=== PATIENT | male | born 1970 | race Asian ===

== ENCOUNTER 2023-05-19 09:09 | Inpatient (IN) ==
--- NOTE | 2023-05-19 10:00 | Emergency Department Note ---
History of Present Illness General Chief Complaint: Fever Stated Complaint: FEVER, ABD PAIN Time Seen by Provider: 05/19/23 09:34 History of Present Illness Provider Complaint: abdominal pain Onset (ago): 1 day(s) Pain Consistency: intermittent Location: RLQ Radiation: none Severity: moderate Maximum Pain Intensity: 5 Current Pain Intensity: 3 Quality: + stabbing and + sharp Relieved By: + nothing Exacerbated By: + nothing Context: no foreign travel or no recent antibiotic use Associated Symptoms: + nausea, + vomiting, + diarrhea, + fever (Tmax 105) and + chills; no constipation, no dysuria, no hematemesis, no hematochezia, no melena, no hematuria, no syncope, no headache, no back pain, no chest pain and no breathing difficulty Home Medications Medication Instructions Recorded Confirmed Type losartan 50 mg-hydrochlorothiazide 1 tab PO DAILY 05/19/23 05/19/23 History 12.5 mg tablet Allergies Allergy/AdvReac Type Severity Reaction Status Date / Time No Known Allergies AdvReac Unknown Unverified 02/15/05 17:10 Past Med/Surg History Medical History (Updated 05/19/23 @ 19:22 by Wero Lewis MD) Essential hypertension Surgical History (Updated 05/19/23 @ 11:39 by Elena Lozano PA-C) History of colonoscopy History of vasectomy Family History (Updated 05/19/23 @ 11:40 by Elena Lozano PA-C) Father Hypertension Cancer Mother Hypertension Diabetes Social History Smoking Status: Never smoker Second Hand Exposure: No; Do You Dip or Chew Tobacco: No; Hx Alcohol Use: No Hx Substance Use: No Preferred Language: Divehi 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 Beliefs That Will Affect Care: None Current Living Situation: Spouse Feels Safe at Home: Yes Assistive Devices: Glasses Physical Exam 2 Vital Signs: Vital Signs - 24 hr 05/19/23 09:12 05/19/23 09:48 05/19/23 09:48 Temperature 37.1 C Temperature Source Oral Pulse Rate 95 H 81 Pulse Rhythm Regular Pulse Strength Normal Respiratory Rate 20 23 Respiratory Effort / Characteristics Non-Labored Sponta neous Respiratory Depth Normal Respiratory Patter n Regular Blood Pressure 125/75 Blood Pressure Ju n 91 Blood Pressure Pos ition Sitting Pulse Oximetry 97 95 Oxygen Delivery Me thod Room Air Room Air Sepsis Recent Feve r Within 48 Hours No Sepsis New/Unexpla ined Change in Men katarina Status No Sepsis Action Take n by Nursing No Action Required 05/19/23 09:51 05/19/23 10:00 05/19/23 11:00 Temperature Temperature Source Pulse Rate 80 74 75 Pulse Rhythm Pulse Strength Respiratory Rate 22 22 Respiratory Effort / Characteristics Respiratory Depth Respiratory Patter n Blood Pressure Blood Pressure Ju n Blood Pressure Pos ition Pulse Oximetry 95 95 Oxygen Delivery Me thod Sepsis Recent Feve r Within 48 Hours Sepsis New/Unexpla ined Change in Men katarina Status Sepsis Action Take n by Nursing 05/19/23 12:00 Temperature Temperature Source Pulse Rate 77 Pulse Rhythm Pulse Strength Respiratory Rate 21 Respiratory Effort / Characteristics Respiratory Depth Respiratory Patter n Blood Pressure 118/80 Blood Pressure Ju n 92 Blood Pressure Pos ition Pulse Oximetry 95 Oxygen Delivery Me thod Sepsis Recent Feve r Within 48 Hours Sepsis New/Unexpla ined Change in Men katarina Status Sepsis Action Take n by Nursing Physical Exam: Physical Exam GENERAL: She is oriented to person, place, and time. She appears well-developed and well-nourished. She does not appear distressed. HENT: Exam performed. -Head: Normocephalic and atraumatic. -Right Ear: External ear normal. No mastoid erythema -Left Ear: External ear normal. No mastoid erythema -Mouth/Throat: The oropharynx is clear and moist. No trismus in the jaw. No dental abscesses or uvula swelling. No oropharyngeal exudate or tonsillar abscesses. EYES: Conjunctivae and EOM are normal.Right eye exhibits no discharge. Left eye exhibits no discharge. No scleral icterus. NECK: Normal range of motion. Neck supple. No JVD present. No tracheal deviation and normal range of motion present. CV: Normal rate, regular rhythm, normal heart sounds and intact distal pulses. There is no peripheral edema. Palpable radial pulses bue. PULM/CHEST: Effort normal and breath sounds normal. No respiratory distress. No stridor. She has no wheezes. She has no rales. -Chest Wall: She exhibits no tenderness. ABD: The abdomen is soft. Bowel sounds are normal. She has no distension. No mass is present. There is tenderness to palpation of the right lower quadrant. There is no rebound, no guarding, no Chou's sign. Rovsig negative MUSC/SKEL: Normal range of motion. There is no peripheral edema, tenderness or deformity. NEURO: Motor and sensation grossly intact. SKIN: Skin is warm and dry. She is not diaphoretic. PSYCH: She has a normal mood and affect. Behavior is normal. Judgment and thought content normal. Course Course 933: The patient was evaluated in room C11. A complete history and physical exam was performed Administered Medications Sodium Chloride (Nss) 1,000 mls @ 100 mls/hr IV .Q10H JALIL Stop: 06/18/23 14:13 Last Admin: 05/19/23 14:28 Dose: 100 mls/hr Documented By: REINIER Ceftriaxone Sodium 2,000 mg/ (Dextrose) 50 mls @ 100 mls/hr IV Q24H JALIL; Protocol Stop: 05/29/23 14:29 Last Infusion: 05/19/23 15:58 Dose: Infused Documented By: Admin: 05/19/23 15:23 Dose: 100 mls/hr Documented By: REINIER Discontinued Medications Sodium Chloride (Nss) 1,000 mls @ 999 mls/hr IV .Q1H1M ONE Stop: 05/19/23 10:48 Last Infusion: 05/19/23 14:16 Dose: Infused Documented By: Admin: 05/19/23 10:02 Dose: 999 mls/hr Documented By: SUE Ciprofloxacin (Cipro / D5w) 400 mg in 200 mls @ 100 mls/hr IV NOW STA; Protocol Stop: 05/19/23 13:28 Last Infusion: 05/19/23 14:16 Dose: Infused Documented By: Admin: 05/19/23 11:34 Dose: 100 mls/hr Documented By: SUE Ioversol (Optiray 320 100ml) 94 ml IV ONCE ONE Stop: 05/19/23 10:45 Last Admin: 05/19/23 10:44 Dose: 94 ml Documented By: ZACK Ketorolac Tromethamine (Ketorolac Tromethamine 15 Mg/Ml Vial) 15 mg IV NOW STA Stop: 05/19/23 09:49 Last Admin: 05/19/23 10:02 Dose: 15 mg Documented By: SUE Morphine Sulfate (Morphine Sulfate 4 Mg/Ml 1 Ml Carp\Vial) 4 mg IV NOW STA Stop: 05/19/23 12:24 Last Admin: 05/19/23 12:31 Dose: 4 mg Documented By: SUE Ondansetron HCl (Ondansetron Inj 2 Mg/Ml 2 Ml Vial) 4 mg IV NOW STA Stop: 05/19/23 09:49 Last Admin: 05/19/23 10:02 Dose: 4 mg Documented By: SUE Medical Decision Making Laboratory Data Attestation: I reviewed the patient's lab results. 05/19/23 09:41 05/19/23 09:41 Lab Results 05/19/23 05/19/23 05/19/23 Range/Units 09:41 10:00 10:12 WBC 13.35 H (4.8-10.8) K/ul RBC 4.44 L (4.70-6.10) M/uL Hgb 13.1 L (14.0-18.0) g/dl Hct 38.2 L (42.0-52.0) % MCV 86.0 (80.0-100.0) fL MCH 29.5 (25.0-34.0) pg MCHC 34.3 (32.0-36.0) g/dL RDW Std Deviation 40.1 (36.4-46.3) fL RDW Coeff of Liam 12.8 (11.5-14.5) % Plt Count 162 (130-400) K/uL MPV 10.9 (9.4-12.4) fL Immature Gran % (Auto) 0.4 % Neut % (Auto) 95.7 % Lymph % (Auto) 1.0 % Ellis % (Auto) 2.8 % Eos % (Auto) 0.0 % Baso % (Auto) 0.1 % Neut # (Auto) 12.77 H (1.40-6.50) K/uL Lymph # (Auto) 0.13 L (1.20-3.40) K/uL Ellis # (Auto) 0.37 (0.11-0.59) K/uL Eos # (Auto) 0.00 (0.00-0.50) K/uL Baso # (Auto) 0.02 (0.00-0.20) K/uL Immature Gran # (Auto) 0.06 (0.01-0.20) K/uL PT Cancelled INR Cancelled APTT Cancelled PTT Ratio Cancelled Sodium 136 (136-145) mmol/L Potassium 3.4 L (3.5-5.1) mmol/L Chloride 104 (98-107) mmol/L Carbon Dioxide 24 (21-32) mmol/L Anion Gap 8 (3-11) BUN 24 H (6-23) mg/dl Creatinine 1.43 H (0.6-1.4) mg/dl Est Cr Clr Drug Dosing 58.5 ml/min Est GFR ( Amer) 64.8 ml/min Est GFR (Non-Af Amer) 55.9 ml/min BUN/Creatinine Ratio 16.8 (10-20) Glucose 101 H (70-99(Fasting)) mg/dl Calcium 8.8 (8.6-10.3) mg/dl Total Bilirubin 1.4 H (0.2-1.0) mg/dl Direct Bilirubin 0.3 H (0-0.2) mg/dl AST 20 (13-39) U/L ALT 18 (7-52) U/L Alkaline Phosphatase 66 (34-104) U/L Total Protein 6.7 (6.0-8.3) gm/dl Albumin 3.8 (3.4-5.0) gm/dl Lipase 30 (11-82) U/L Urine Color Dark Yellow Urine Appearance Cloudy A (Clear) Urine pH 5.5 (4.5-7.5) Ur Specific [place] 1.027 (1.000-1.030) Urine Protein 2+ H (Negative) Urine Glucose (UA) Negative (Negative) Urine Ketones Trace H (Negative) Urine Blood 2+ H (Negative) Urine Nitrite Positive A (Negative) Urine Bilirubin Negative (Negative) Urine Urobilinogen Negative (Negative) Ur Leukocyte Esterase 2+ H (Negative) Urine WBC (Auto) >30 H (0-5) /hpf Urine RBC (Auto) 5-10 H (0-4) /hpf U Hyaline Cast (Auto) 10-30 H (0-5) /lpf U Epithel Cells (Auto) 0-5 (0-5) /lpf Urine Bacteria (Auto) 2+ H (Negative) Stl C. cayetanensis PCR Not Detected (NotDetected) Stool Rotavirus A PCR Not Detected (NotDetected) Stl Adenov F 40/41 PCR Not Detected (NotDetected) Stool Astrovirus (PCR) Not Detected (NotDetected) Stool Campylobacter PCR Not Detected (NotDetected) Stool Cryptosporidium PCR Not Detected (NotDetected) Stl E.coli Shiga Tox PCR Not Detected (NotDetected) Stl Enterotoxigenic E PCR Not Detected (NotDetected) Stool EPEC (PCR) Not Detected (NotDetected) Stool EAEC (PCR) Not Detected (NotDetected) Stl E. histolytica PCR Not Detected (NotDetected) Stool Giardia Lamblia PCR Not Detected (NotDetected) Stool Salmonella PCR Not Detected (NotDetected) Stool Sapovirus (PCR) Not Detected (NotDetected) Stl P. shigelloides PCR Not Detected (NotDetected) Stl Shigella/EIEC PCR Not Detected (NotDetected) St Y.enterocolitica PCR Not Detected (NotDetected) Stool Vibrio (PCR) Not Detected (NotDetected) Stl Vibrio cholerae PCR Not Detected (NotDetected) Stl Norovirus GI/GII PCR DETECTED A* (NotDetected) Adenovirus (PCR) Not Detected (NotDetected) B. pertussis DNA (PCR) Not Detected (NotDetected) B.parapertussis DNA PCR Not Detected (NotDetected) C. pneumoniae DNA (PCR) Not Detected (NotDetected) Coronavirus OC43 (PCR) Not Detected (NotDetected) Coronavirus HKU1 (PCR) Not Detected (NotDetected) Coronavirus 229E (PCR) Not Detected (NotDetected) SARS-CoV-2 (PCR) Not Detected (NotDetected) Coronavirus NL63 (PCR) Not Detected (NotDetected) Human Metapneumovir PCR Not Detected (NotDetected) Influenza Type A (PCR) Not Detected (NotDetected) Influenza Type B (PCR) Not Detected (NotDetected) M. pneumoniae (PCR) Not Detected (NotDetected) Parainfluenza 1 (PCR) Not Detected (NotDetected) Parainfluenza 2 (PCR) Not Detected (NotDetected) Parainfluenza 3 (PCR) Not Detected (NotDetected) Parainfluenza 4 (PCR) Not Detected (NotDetected) RSV (PCR) Not Detected (NotDetected) Entero/Rhino (PCR) Not Detected (NotDetected) 05/19/23 Range/Units 10:18 WBC (4.8-10.8) K/ul RBC (4.70-6.10) M/uL Hgb (14.0-18.0) g/dl Hct (42.0-52.0) % MCV (80.0-100.0) fL MCH (25.0-34.0) pg MCHC (32.0-36.0) g/dL RDW Std Deviation (36.4-46.3) fL RDW Coeff of Liam (11.5-14.5) % Plt Count (130-400) K/uL MPV (9.4-12.4) fL Immature Gran % (Auto) % Neut % (Auto) % Lymph % (Auto) % Ellis % (Auto) % Eos % (Auto) % Baso % (Auto) % Neut # (Auto) (1.40-6.50) K/uL Lymph # (Auto) (1.20-3.40) K/uL Ellis # (Auto) (0.11-0.59) K/uL Eos # (Auto) (0.00-0.50) K/uL Baso # (Auto) (0.00-0.20) K/uL Immature Gran # (Auto) (0.01-0.20) K/uL PT 12.8 H INR 1.2 H APTT 37 H PTT Ratio 1.3 Sodium (136-145) mmol/L Potassium (3.5-5.1) mmol/L Chloride (98-107) mmol/L Carbon Dioxide (21-32) mmol/L Anion Gap (3-11) BUN (6-23) mg/dl Creatinine (0.6-1.4) mg/dl Est Cr Clr Drug Dosing ml/min Est GFR ( Amer) ml/min Est GFR (Non-Af Amer) ml/min BUN/Creatinine Ratio (10-20) Glucose (70-99(Fasting)) mg/dl Calcium (8.6-10.3) mg/dl Total Bilirubin (0.2-1.0) mg/dl Direct Bilirubin (0-0.2) mg/dl AST (13-39) U/L ALT (7-52) U/L Alkaline Phosphatase (34-104) U/L Total Protein (6.0-8.3) gm/dl Albumin (3.4-5.0) gm/dl Lipase (11-82) U/L Urine Color Urine Appearance (Clear) Urine pH (4.5-7.5) Ur Specific [place] (1.000-1.030) Urine Protein (Negative) Urine Glucose (UA) (Negative) Urine Ketones (Negative) Urine Blood (Negative) Urine Nitrite (Negative) Urine Bilirubin (Negative) Urine Urobilinogen (Negative) Ur Leukocyte Esterase (Negative) Urine WBC (Auto) (0-5) /hpf Urine RBC (Auto) (0-4) /hpf U Hyaline Cast (Auto) (0-5) /lpf U Epithel Cells (Auto) (0-5) /lpf Urine Bacteria (Auto) (Negative) Stl C. cayetanensis PCR (NotDetected) Stool Rotavirus A PCR (NotDetected) Stl Adenov F 40/41 PCR (NotDetected) Stool Astrovirus (PCR) (NotDetected) Stool Campylobacter PCR (NotDetected) Stool Cryptosporidium PCR (NotDetected) Stl E.coli Shiga Tox PCR (NotDetected) Stl Enterotoxigenic E PCR (NotDetected) Stool EPEC (PCR) (NotDetected) Stool EAEC (PCR) (NotDetected) Stl E. histolytica PCR (NotDetected) Stool Giardia Lamblia PCR (NotDetected) Stool Salmonella PCR (NotDetected) Stool Sapovirus (PCR) (NotDetected) Stl P. shigelloides PCR (NotDetected) Stl Shigella/EIEC PCR (NotDetected) St Y.enterocolitica PCR (NotDetected) Stool Vibrio (PCR) (NotDetected) Stl Vibrio cholerae PCR (NotDetected) Stl Norovirus GI/GII PCR (NotDetected) Adenovirus (PCR) (NotDetected) B. pertussis DNA (PCR) (NotDetected) B.parapertussis DNA PCR (NotDetected) C. pneumoniae DNA (PCR) (NotDetected) Coronavirus OC43 (PCR) (NotDetected) Coronavirus HKU1 (PCR) (NotDetected) Coronavirus 229E (PCR) (NotDetected) SARS-CoV-2 (PCR) (NotDetected) Coronavirus NL63 (PCR) (NotDetected) Human Metapneumovir PCR (NotDetected) Influenza Type A (PCR) (NotDetected) Influenza Type B (PCR) (NotDetected) M. pneumoniae (PCR) (NotDetected) Parainfluenza 1 (PCR) (NotDetected) Parainfluenza 2 (PCR) (NotDetected) Parainfluenza 3 (PCR) (NotDetected) Parainfluenza 4 (PCR) (NotDetected) RSV (PCR) (NotDetected) Entero/Rhino (PCR) (NotDetected) Imaging Data Radiologist's Impression: Abdomen/Pelvis CT 05/19/23 09:[address] WITH IV CONTRAST CT DOSE: 741.16 mGy.cm HISTORY: Acute right lower quadrant abdominal pain with fever rlq pain fever ro appy TECHNIQUE: Multiaxial CT images of the abdomen and pelvis were performed following the IV administration of 94 cc of Optiray, A dose lowering technique was utilized adhering to the principles of ALARA. COMPARISON STUDY: None. FINDINGS: Trace pleural effusions. Mild subsegmental dependent bibasilar atelectasis. No free air. Unremarkable spleen, pancreas and adrenal glands. Innumerable mostly subcentimeter cystic foci of the liver suggestive of cysts and/or biliary hamartomas. Additional subcentimeter foci of the liver measuring up to 1.6 cm or incomplete characterized however favored to be benign. There is patency of the hepatic and portal veins. Innumerable cysts of the kidneys with intermediate attenuating hypodensities of the right kidney. There is a 3.6 cm thick-walled cystic exophytic lesion of the mid inferior pole right kidney. 4 mm nonobstructing calculus of the inferior pole right kidney. There are several subcentimeter calcifications of the left kidney. Urothelial thickening of the right renal collecting system and ureter with mild right-sided hydronephrosis secondary to an obstructing 5 x 4 x 7 mm calculus of the right ureteropelvic junction. Decompressed bladder with wall thickening. Mild prostatomegaly. Small fat filled inguinal hernias, left greater than right. Atherosclerosis of the aorta without aneurysm. No lymphadenopathy. No bowel obstruction or bowel wall thickening. Colonic diverticulosis. Normal appendix. Severe L5-S1 intervertebral disc space narrowing. No acute fracture. IMPRESSION: 1. Mild right-sided hydronephrosis secondary to an obstructing 7 mm calculus of the ureteropelvic junction. 2. Nonobstructing bilateral nephrolithiasis. 3. Innumerable hepatic and renal cysts. 4. There is a thick walled hypodense partially exophytic 3.6 cm lesion of the right kidney which is indeterminate and should be evaluated with a follow-up one month renal ultrasound. 5. Right-sided urothelial thickening and perinephric inflammatory stranding is likely reactive. Correlate with urinalysis to exclude superimposed infection. 6. Normal appendix. ACT 112: Negative or not required by law. The above report was generated using voice recognition software. It may contain grammatical, syntax or spelling errors. Electronically signed by: Skinny Hay M.D. 05/19/2023 11:22 AM [facility] Narrative Cardiac monitoring: An order was placed for continuous cardiac monitoring. The monitor shows a rate of 80 with sinus rhythm interpreted by me Vital signs stable. Labs show leukocytosis of 13.35. Creatinine 1.43. Total bilirubin 1.4. Urinalysis does appear infected. Patient's CT of the abdomen pelvis showed a 7 mm stone at the right UV J hydronephrosis. Normal appendix. Spoke with urology Angie NORIEGA for Dr. Hutchison and informed her about the patient's mildly elevated creatinine fevers urinalysis and CT findings. She states she will be down to evaluate the patient. Patient be admitted to the [facility] team Impression & Plan UTI (urinary tract infection), Hydronephrosis concurrent with and due to calculi of kidney and ureter Discharge Plan Visit Data Chief Complaint: Fever Stated Complaint: FEVER, ABD PAIN ED Provider: Wero Lewis Discharge Problem: UTI (urinary tract infection), Hydronephrosis concurrent with and due to calculi of kidney and ureter Patient Disposition: Admitted As Inpatient Discharge Instructions Interventions: ED Discharge Assessment Last Done: 05/19/23 12:49
[2023-05-19] MEDS: SODIUM CHLORIDE 0.9% 1,000 ML IV ONE (10:02)
[2023-05-19] MEDS: KETOROLAC TROMETHAMINE 15 MG/ML VIAL IV STA (10:02)
[2023-05-19] MEDS: ONDANSETRON INJ 2 MG/ML 2 ML VIAL IV STA (10:02)
[2023-05-19 10:08] LABS: Hematocrit (blood only) 38.2 % (42.0-52.0); Hemoglobin 13.1 g/dl (14.0-18.0); Mean Corpuscular Hemoglobin 29.5 pg (25.0-34.0); Mean Corpuscular Hgb Conc 34.3 g/dL (32.0-36.0); Mean Platelet Volume 10.9 fL (9.4-12.4); Platelet Count 162 K/uL (130-400); RDW Coefficient of Variation 12.8 % (11.5-14.5); RDW Standard Deviation 40.1 fL (36.4-46.3); Red Blood Count 4.44 M/uL (4.70-6.10); White Blood Count 13.35 K/ul (4.8-10.8)
[2023-05-19 10:21] LABS: Albumin Level 3.8 gm/dl (3.4-5.0); BUN Creatinine Ratio 16.8 (10-20); Bilirubin Direct 0.3 mg/dl (0-0.2); Bilirubin,Total 1.4 mg/dl (0.2-1.0); Calcium 8.8 mg/dl (8.6-10.3); Creatinine Clr Calc Pharmacy 58.5 ml/min; Est GFR (African American) 64.8 ml/min; Est GFR (Non-African American) 55.9 ml/min; Potassium 3.4 mmol/L (3.5-5.1); Total Protein 6.7 gm/dl (6.0-8.3)
[2023-05-19 10:31] LABS: Basophils # (auto) 0.02 K/uL (0.00-0.20); Basophils % (auto) 0.1 %; Immature Granulocytes # (auto) 0.06 K/uL (0.01-0.20); Immature Granulocytes % (auto) 0.4 %; Lymphocytes # (auto) 0.13 K/uL (1.20-3.40); Monocytes # (auto) 0.37 K/uL (0.11-0.59); Monocytes % (auto) 2.8 %; Neutrophils # (auto) 12.77 K/uL (1.40-6.50); Neutrophils % (auto) 95.7 %
[2023-05-19 10:36] LABS: Appearance Urine Cloudy (Clear); Bacteria Urine Automated 2+ (Negative); Bilirubin Urine Negative (Negative); Blood Urine 2+ (Negative); Color Urine Dark Yellow; Epithelial Cell Urine Auto 0-5 /lpf (0-5); Glucose Urine UA Negative (Negative); Ketones Urine Trace (Negative); Leukocyte Esterase Urine 2+ (Negative); Nitrite Urine Positive (Negative); Protein Urine 2+ (Negative); Specific Gravity Urine 1.027 (1.000-1.030); Urobilinogen Urine Negative (Negative); WBC Urine Automated >30 /hpf (0-5); pH Urine 5.5 (4.5-7.5)
[2023-05-19] MEDS: OPTIRAY 320 100ml IV ONE (10:44)
[2023-05-19 11:02] LABS: INR 1.2 (0.9-1.1); Partial Thromboplastin Ratio 1.3; Partial Thromboplastin Time 37 Seconds (21-31); Prothrombin Time 12.8 Seconds (9.0-12.0)
[2023-05-19 11:20] LABS: Adenovirus PCR Not Detected (NotDetected); Bordetella parapertussis PCR Not Detected (NotDetected); Bordetella pertussis PCR Not Detected (NotDetected); Chlamydia pneumoniae PCR Not Detected (NotDetected); Coronavirus 229E PCR Not Detected (NotDetected); Coronavirus CoV-2 (COVID19)PCR Not Detected (NotDetected); Coronavirus HKU1 PCR Not Detected (NotDetected); Coronavirus NL63 PCR Not Detected (NotDetected); Coronavirus OC43PCR Not Detected (NotDetected); Human Metapneumovirus PCR Not Detected (NotDetected); Influenza A PCR Not Detected (NotDetected); Influenza B PCR Not Detected (NotDetected); Mycoplasma pneumoniae PCR Not Detected (NotDetected); Parainfluenza Virus 1 PCR Not Detected (NotDetected); Parainfluenza Virus 2 PCR Not Detected (NotDetected); Parainfluenza Virus 3 PCR Not Detected (NotDetected); Parainfluenza Virus 4 PCR Not Detected (NotDetected); Respiratory Syncytial VirusPCR Not Detected (NotDetected); Rhinovirus/Enterovirus PCR Not Detected (NotDetected)
--- NOTE | 2023-05-19 11:24 | CT Scan Report ---
ABDOMEN AND PELVIS CT WITH IV CONTRAST CT DOSE: 741.16 mGy.cm HISTORY: Acute right lower quadrant abdominal pain with fever rlq pain fever ro appy TECHNIQUE: Multiaxial CT images of the abdomen and pelvis were performed following the IV administrat ion of 94 cc of Optiray, A dose lowering technique was utilized adhering to the principles of ALARA. COMPARISON STUDY: None. FINDINGS: Trace pleural effusions. Mild subsegmental dependent bibasilar atelectasis. No free air. Un remarkable spleen, pancreas and adrenal glands. Innumerable mostly subcentimeter cystic foci of the l iver suggestive of cysts and/or biliary hamartomas. Additional subcentimeter foci of the liver measur ing up to 1.6 cm or incomplete characterized however favored to be benign. There is patency of the he patic and portal veins. Innumerable cysts of the kidneys with intermediate attenuating hypodensities of the right kidney. The re is a 3.6 cm thick-walled cystic exophytic lesion of the mid inferior pole right kidney. 4 mm nonob structing calculus of the inferior pole right kidney. There are several subcentimeter calcifications of the left kidney. Urothelial thickening of the right renal collecting system and ureter with mild r ight-sided hydronephrosis secondary to an obstructing 5 x 4 x 7 mm calculus of the right ureteropelvi c junction. Decompressed bladder with wall thickening. Mild prostatomegaly. Small fat filled inguinal hernias, left greater than right. Atherosclerosis of the aorta without aneurysm. No lymphadenopathy. No bowel obstruction or bowel wall thickening. Colonic diverticulosis. Normal appendix. Severe L5-S1 intervertebral disc space narrowing. No acute fracture. IMPRESSION: 1. Mild right-sided hydronephrosis secondary to an obstructing 7 mm calculus of the ureteropelvic jami ction. 2. Nonobstructing bilateral nephrolithiasis. 3. Innumerable hepatic and renal cysts. 4. There is a thick walled hypodense partially exophytic 3.6 cm lesion of the right kidney which is i ndeterminate and should be evaluated with a follow-up one month renal ultrasound. 5. Right-sided urothelial thickening and perinephric inflammatory stranding is likely reactive. Corre late with urinalysis to exclude superimposed infection. 6. Normal appendix. ACT 112: Negative or not required by law. The above report was generated using voice recognition software. It may contain grammatical, syntax o r spelling errors. Electronically signed by: Skinny Hay M.D. 05/19/2023 11:22 AM
[2023-05-19 11:32] LABS: Adenovirus F 40/41 PCR Not Detected (NotDetected); Astrovirus PCR Not Detected (NotDetected); Campylobacter PCR Not Detected (NotDetected); Cryptosporidium PCR Not Detected (NotDetected); Cyclospora cayetanensis PCR Not Detected (NotDetected); Entamoeba histolytica PCR Not Detected (NotDetected); Enteroaggregative E.coli(EAEC) Not Detected (NotDetected); Enteropathogenic E.coli (EPEC) Not Detected (NotDetected); Enterotoxigenic E.coli (ETEC) Not Detected (NotDetected); Giardia lamblia PCR Not Detected (NotDetected); Plesiomonas shigelloides PCR Not Detected (NotDetected); Rotavirus A PCR Not Detected (NotDetected); Salmonella PCR Not Detected (NotDetected); Sapovirus PCR Not Detected (NotDetected); Shiga-like Toxin E.coli (STEC) Not Detected (NotDetected); Shigella/Enteroinvasive E.coli Not Detected (NotDetected); Vibrio cholerae PCR Not Detected (NotDetected); Vibrio species PCR Not Detected (NotDetected); Yersinia enterocolitica PCR Not Detected (NotDetected)
[2023-05-19] MEDS: CIPROFLOXACIN / D5W 400 MG/200 ML BAG IV STA (11:34)
[2023-05-19 11:57] LABS: Norovirus GI/GII PCR DETECTED (NotDetected)
--- NOTE | 2023-05-19 12:25 | History & Physical Report ---
Date of Service May 19, 2023 Assessment & Plan (1) UTI (urinary tract infection): Plan: This is a 52 y/o male with history of hypertension who presents to the ED today with fever and right flank pain for three days. Work-up in the ED shows mild right hydronephrosis with 7 mm obstructing stone at the UPJ. Pt is currently afebrile but reports taking both Tylenol and Advil this morning prior to coming to the ED as his temp was elevated again. Work-up also positive for norovirus but pt reports diarrhea has resolved and stools are back to baseline. - Admit to med telemetry - Consult urology for possible intervention - will keep pt NPO for now - Pain control, anti-emetics - Continue antibiotics pending culture results - will change to Rocephin - IVF hydration with NSS at 100 ml/hr - Follow labs - CBC, BMP in the AM - Contact precautions since positive for norovirus (2) Obstruction of right ureteropelvic junction due to stone: Plan: See plan for #1 (3) Essential hypertension: Plan: Chronic, stable Hold losartan-HCTZ for now and monitor BP Plan Pt seen and reviewed with collaborating physician, Dr. Payton. Plan of care discussed and as outlined above. Code Status: Full code DVT Prophylaxis: SCDs in anticipation of potential urologic procedure. Kike Lozano PA-C History of Present Illness Chief Complaint: fever Primary Care Provider: Stephan Stevens DO This is a 52 y/o male with history of hypertension who presents to the ED today with fever and right flank pain for three days. Pt reports that he had some diarrhea on and Friday of last week - took an unknown medication for this which helped and bowel movements are now normal. Friday, he started with fevers with a Tmax of 105F per his report. He has been alternating Tylenol and Advil to help with the fever but reports it hasn't gotten below 100F and his temperature goes back up as soon as these medications wear off. He has pain that initially started in his right flank/back but is now more in his RLQ and flank. The pain seems worse with specific movements but better if he lies still. He currently rates it as a 5 out of 10. He has noted chills and sweats. He denies vomiting, hematuria, or dysuria. He denies prior history of nephrolithiasis. Allergies Allergy/AdvReac Type Severity Reaction Status Date / Time No Known Allergies AdvReac Unknown Unverified 02/15/05 17:10 Home Medications Medication Instructions Recorded Confirmed Type losartan 50 mg-hydrochlorothiazide 1 tab PO DAILY 05/19/23 05/19/23 History 12.5 mg tablet Past Med/Surg History Medical History Essential hypertension Surgical History History of colonoscopy History of vasectomy Family History Father Hypertension Cancer Mother Hypertension Diabetes Social History Smoking Status: Never smoker Second Hand Exposure: No; Do You Dip or Chew Tobacco: No; Hx Alcohol Use: No Hx Substance Use: No Preferred Language: Greenlandic Manufacturing Technician Required: No Beliefs That Will Affect Care: None Current Living Situation: Spouse Feels Safe at Home: Yes Assistive Devices: Glasses Review of Systems Review of Systems: All systems reviewed & are unremarkable except as noted in HPI & below Constitutional: + fever, + chills and + fatigue Eyes: no diplopia and no worsening vision Ear, Nose, Mouth, Throat: no nasal congestion, no nasal discharge and no sore throat Respiratory: no cough and no dyspnea Cardiovascular: no chest pain, no palpitations and no syncope Gastrointestinal: as per Subjective / HPI Genitourinary: + as per Subjective / HPI Musculoskeletal: no neck pain and no joint pain Integumentary: no rash Neurologic: no headache(s) and no confusion Physical Exam Physical Exam: General: awake, alert, NAD HEENT: no scleral icterus, moist oral mucosa Neck: trachea midline Heart: RRR Lungs: CTA bilaterally Abdomen: soft, +BS, +tenderness in right lower flank area Extremities: no pedal edema, distal pulses intact and equal Skin: warm, dry, no decreased turgor, no jaundice Neurologic: moving all extremities, no focal deficits, no confusion or dysarthria Results & Data Results & Data Vital Signs (Past 12 Hours) Vital Signs Temp Pulse Resp BP Pulse Ox O2 Del Method 05/19/23 09:51 80 05/19/23 09:48 Room Air 05/19/23 09:12 37.1 C 95 H 20 125/75 97 Room Air Laboratory Results Laboratory Results - last 24 hr 05/19/23 05/19/23 05/19/23 09:41 10:00 10:12 WBC 13.35 H RBC 4.44 L Hgb 13.1 L Hct 38.2 L MCV 86.0 MCH 29.5 MCHC 34.3 RDW Std Deviation 40.1 RDW Coeff of Liam 12.8 Plt Count 162 MPV 10.9 Immature Gran % (Auto) 0.4 Neut % (Auto) 95.7 Lymph % (Auto) 1.0 [place] % (Auto) 2.8 Eos % (Auto) 0.0 Baso % (Auto) 0.1 Neut # (Auto) 12.77 H Lymph # (Auto) 0.13 L [place] # (Auto) 0.37 Eos # (Auto) 0.00 Baso # (Auto) 0.02 Immature Gran # (Auto) 0.06 PT Cancelled INR Cancelled APTT Cancelled PTT Ratio Cancelled Sodium 136 Potassium 3.4 L Chloride 104 Carbon Dioxide 24 Anion Gap 8 BUN 24 H Creatinine 1.43 H Est Cr Clr Drug Dosing 58.5 Est GFR ( Amer) 64.8 Est GFR (Non-Af Amer) 55.9 BUN/Creatinine Ratio 16.8 Glucose 101 H Calcium 8.8 Total Bilirubin 1.4 H Direct Bilirubin 0.3 H AST 20 ALT 18 Alkaline Phosphatase 66 Total Protein 6.7 Albumin 3.8 Lipase 30 Urine Color Dark Yellow Urine Appearance Cloudy A Urine pH 5.5 Ur Specific [place] 1.027 Urine Protein 2+ H Urine Glucose (UA) Negative Urine Ketones Trace H Urine Blood 2+ H Urine Nitrite Positive A Urine Bilirubin Negative Urine Urobilinogen Negative Ur Leukocyte Esterase 2+ H Urine WBC (Auto) >30 H Urine RBC (Auto) 5-10 H U Hyaline Cast (Auto) 10-30 H U Epithel Cells (Auto) 0-5 Urine Bacteria (Auto) 2+ H Stl C. cayetanensis PCR Not Detected Stool Rotavirus A PCR Not Detected Stl Adenov F 40 PCR Not Detected Stool Astrovirus (PCR) Not Detected Stool Campylobacter PCR Not Detected Stool Cryptosporidium PCR Not Detected Stl E.coli Shiga Tox PCR Not Detected Stl Enterotoxigenic E PCR Not Detected Stool EPEC (PCR) Not Detected Stool EAEC (PCR) Not Detected Stl E. histolytica PCR Not Detected Stool Giardia Lamblia PCR Not Detected Stool Salmonella PCR Not Detected Stool Sapovirus (PCR) Not Detected Stl P. shigelloides PCR Not Detected Stl Shigella/EIEC PCR Not Detected St Y.enterocolitica PCR Not Detected Stool Vibrio (PCR) Not Detected Stl Vibrio cholerae PCR Not Detected Stl Norovirus GI/GII PCR DETECTED A* Adenovirus (PCR) Not Detected B. pertussis DNA (PCR) Not Detected B.parapertussis DNA PCR Not Detected C. pneumoniae DNA (PCR) Not Detected Coronavirus OC43 (PCR) Not Detected Coronavirus HKU1 (PCR) Not Detected Coronavirus 229E (PCR) Not Detected SARS-CoV-2 (PCR) Not Detected Coronavirus NL63 (PCR) Not Detected Human Metapneumovir PCR Not Detected Influenza Type A (PCR) Not Detected Influenza Type B (PCR) Not Detected M. pneumoniae (PCR) Not Detected Parainfluenza 1 (PCR) Not Detected Parainfluenza 2 (PCR) Not Detected Parainfluenza 3 (PCR) Not Detected Parainfluenza 4 (PCR) Not Detected RSV (PCR) Not Detected Entero/Rhino (PCR) Not Detected 05/19/23 10:18 WBC RBC Hgb Hct MCV MCH MCHC RDW Std Deviation RDW Coeff of Liam Plt Count MPV Immature Gran % (Auto) Neut % (Auto) Lymph % (Auto) [place] % (Auto) Eos % (Auto) Baso % (Auto) Neut # (Auto) Lymph # (Auto) [place] # (Auto) Eos # (Auto) Baso # (Auto) Immature Gran # (Auto) PT 12.8 H INR 1.2 H APTT 37 H PTT Ratio 1.3 Sodium Potassium Chloride Carbon Dioxide Anion Gap BUN Creatinine Est Cr Clr Drug Dosing Est GFR ( Amer) Est GFR (Non-Af Amer) BUN/Creatinine Ratio Glucose Calcium Total Bilirubin Direct Bilirubin AST ALT Alkaline Phosphatase Total Protein Albumin Lipase Urine Color Urine Appearance Urine pH Ur Specific [place] Urine Protein Urine Glucose (UA) Urine Ketones Urine Blood Urine Nitrite Urine Bilirubin Urine Urobilinogen Ur Leukocyte Esterase Urine WBC (Auto) Urine RBC (Auto) U Hyaline Cast (Auto) U Epithel Cells (Auto) Urine Bacteria (Auto) Stl C. cayetanensis PCR Stool Rotavirus A PCR Stl Adenov F 40/41 PCR Stool Astrovirus (PCR) Stool Campylobacter PCR Stool Cryptosporidium PCR Stl E.coli Shiga Tox PCR Stl Enterotoxigenic E PCR Stool EPEC (PCR) Stool EAEC (PCR) Stl E. histolytica PCR Stool Giardia Lamblia PCR Stool Salmonella PCR Stool Sapovirus (PCR) Stl P. shigelloides PCR Stl Shigella/EIEC PCR St Y.enterocolitica PCR Stool Vibrio (PCR) Stl Vibrio cholerae PCR Stl Norovirus GI/GII PCR Adenovirus (PCR) B. pertussis DNA (PCR) B.parapertussis DNA PCR C. pneumoniae DNA (PCR) Coronavirus OC43 (PCR) Coronavirus HKU1 (PCR) Coronavirus 229E (PCR) SARS-CoV-2 (PCR) Coronavirus NL63 (PCR) Human Metapneumovir PCR Influenza Type A (PCR) Influenza Type B (PCR) M. pneumoniae (PCR) Parainfluenza 1 (PCR) Parainfluenza 2 (PCR) Parainfluenza 3 (PCR) Parainfluenza 4 (PCR) RSV (PCR) Entero/Rhino (PCR) Diagnostic Findings Abdomen/Pelvis CT 05/19/23 09:[address] WITH IV CONTRAST CT DOSE: 741.16 mGy.cm HISTORY: Acute right lower quadrant abdominal pain with fever rlq pain fever ro appy TECHNIQUE: Multiaxial CT images of the abdomen and pelvis were performed fo llowing the IV administration of 94 cc of Optiray, A dose lowering technique was utilized adhering to the principles of ALARA. COMPARISON STUDY: None. FINDINGS: Trace pleural effusions. Mild subsegmental dependent bibasilar atelectasis. No free air. Unremarkable spleen, pancreas and adrenal glands. Innumerable mostly subcentimeter cystic foci of the liver suggestive of cysts and/or biliary hamartomas. Additional subcentimeter foci of the liver measuring up to 1.6 cm or incomplete characterized however favored to be benign. There is patency of the hepatic and portal veins. Innumerable cysts of the kidneys with intermediate attenuating hypodensities of the right kidney. There is a 3.6 cm thick-walled cystic exophytic lesion of the mid inferior pole right kidney. 4 mm nonobstructing calculus of the inferior pole right kidney. There are several subcentimeter calcifications of the left kidney. Urothelial thickening of the right renal collecting system and ureter with mild right-sided hydronephrosis secondary to an obstructing 5 x 4 x 7 mm calculus of the right ureteropelvic junction. Decompressed bladder with wall thickening. Mild prostatomegaly. Small fat filled inguinal hernias, left greater than right. Atherosclerosis of the aorta without aneurysm. No lymphadenopathy. No bowel obstruction or bowel wall thickening. Colonic diverticulosis. Normal appendix. Severe L5-S1 intervertebral disc space narrowing. No acute fracture. IMPRESSION: 1. Mild right-sided hydronephrosis secondary to an obstructing 7 mm calculus of the ureteropelvic junction. 2. Nonobstructing bilateral nephrolithiasis. 3. Innumerable hepatic and renal cysts. 4. There is a thick walled hypodense partially exophytic 3.6 cm lesion of the right kidney which is indeterminate and should be evaluated with a follow-up one month renal ultrasound. 5. Right-sided urothelial thickening and perinephric inflammatory stranding is likely reactive. Correlate with urinalysis to exclude superimposed infection. 6. Normal appendix. ACT 112: Negative or not required by law. The above report was generated using voice recognition software. It may contain grammatical, syntax or spelling errors. Electronically signed by: Skinny Hay M.D. 05/19/2023 11:22 AM Medications Administered Ciprofloxacin (Cipro / D5w) 400 mg in 200 mls @ 100 mls/hr IV NOW STA; Protocol Stop: 05/19/23 13:28 Last Admin: 05/19/23 11:34 Dose: 100 mls/hr Documented By: SUE Discontinued Medications Sodium Chloride (Nss) 1,000 mls @ 999 mls/hr IV .Q1H1M ONE Stop: 05/19/23 10:48 Last Admin: 05/19/23 10:02 Dose: 999 mls/hr Documented By: SUE Ioversol (Optiray 320 100ml) 94 ml IV ONCE ONE Stop: 05/19/23 10:45 Last Admin: 05/19/23 10:44 Dose: 94 ml Documented By: ZACK Ketorolac Tromethamine (Ketorolac Tromethamine 15 Mg/Ml Vial) 15 mg IV NOW STA Stop: 04/01/24 09:49 Last Admin: 05/19/23 10:02 Dose: 15 mg Documented By: SUE Ondansetron HCl (Ondansetron Inj 2 Mg/Ml 2 Ml Vial) 4 mg IV NOW STA Stop: 05/19/23 09:49 Last Admin: 05/19/23 10:02 Dose: 4 mg Documented By: SUE Code Status & VTE Plan VTE Prophylaxis Plan VTE Prophylaxis will be ordered: Yes Supervising Physician Co-Signing Physician Notes Pt was seen and examined by myself, Dari Payton MD on the day of service. Care was coordinated with Elena Lozano PA-C. 52yoM presenting with fevers at home, diarrhea and right sided flank pain. States that symptoms started about 5 days ago. Per pt had fevers as high as 105. On exam abdomen nontender to palpation. Pt tender to palpation in right flank area. Sepsis- Pt febrile later at 39C, tachycardic on arrival with leukocytosis with WBC 13K, urinary infectious source. Lactate and blood Cx ordered and pending. Was switched from cipro in the ED to Rocephin. Once fever of 39 noted, abx broadened to cefepime. Pt taken to the OR by Urology. Follow fever curve and urine/blood Cx. UTI- UA suggestive of infection, urine Cx pending. Abx treatment broadened to Cefepime, narrow based on Cx results Obstructive Uropathy- 7mm obstructing stone with hydronephrosis on right, urology consulted. s/p stent placement on 05/18 Hematuria- noted on UA, likely in setting of above R kidney exophytic lesion-noted on CT abd/pelvis, radiology recommending 1 month followup ultrasound Cystic kidney and liver- noted on CT abd/pelvis, likely benign. Nonurgent followup Norovirus Infection- pt with diarrhea, stool Cx noting norovirus infection. Supportive treatment, push fluids Hypokalemia- K of 3.4, replete as needed THALIA- cr elevated at 1.43, IV fluid hydration. Trend with AM labs Ketonuria- ketones noted on UA, likely due to dehydration in setting of acute diarrheal/norovirus infection and acute illness.IV fluids as above. Coagulopathy, indirect hyperbilirubinemia, hepatic cysts- PT/INR elevated, t bili elevated at 1.4, direct elevated at 0.3, noted cysts on liver on CT abd/pelvis. Consider further hepatic workup with liver US, possible GI consult. Hyperglycemia- glucose slightly elevated at 101, AM hgba1c, r/o DM Anemia-hgb slightly low at 13.1. AM iron panel, b12, folate. Severe L5-S1 disc space narrowing- noted on CT abd/pelvis. Consider determination of whether pt symptomatic. Mild prostatomegaly-noted on CT abd/pelvis, consider outpt PCP/Urology follow up. Otherwise as above. I spent a total of 45 minutes coordinating, documenting, and providing care for this patient excluding time spent in the performance of separately billed services (1) UTI (urinary tract infection) Hematuria presence: without hematuria Urinary tract infection type: site unspecified Qualified Code(s): N39.0 - Urinary tract infection, site not specified
[2023-05-19] MEDS: MoRPHine SULFATE 4 MG/ML 1 ML CARP\\VIAL IV STA (12:31)
--- NOTE | 2023-05-19 13:52 | Urology Consultation ---
Date of Consultation May 19, 2023 Assessment & Plan (1) Obstruction of right ureteropelvic junction due to stone: (2) UTI (urinary tract infection): Plan 52yo M admitted with an obstructing 7mm R UPJ stone and concern for infection. Also found to be positive for norovirus. Afebrile and hemodynamically stable at present. Labs - Leukocytosis of 13.35 and creatinine 1.43. UA suspicious for infection, culture pending. On IV ciprofloxacin. Voiding spontaneously, continue to monitor. Pt had breakfast around 8AM today. He is currently normotensive without tachycardia or fever. No plan for intervention today unless patient becomes febrile. Continue supportive care and pain management. Continue antibiotics and tailor as culture data comes available. NPO at midnight for possible procedure tomorrow. Please consult our service urgently if patient develops fever or other acute changes as this will necessitate urgent surgical intervention. Urology will follow. Plan of care reviewed with Dr. Hutchison, on-call urologist. History of Present Illness History of Present Illness 52 year old male with a PMHx including hypertension who presented to the ED 05/19/23 with fever and right flank pain He reports fever at home with Tmax of 105F per his report. He has pain that initially started in his right flank/back but is now more in his RLQ and flank. In the ED he was afebrile and hemodynamically stable. Labs showing a white count of 13.35, hemoglobin 13.1, and creatinine 1.43. Urinalysis with 2+ blood, positive nitrite, 2+ LE, 2+ bacteria. Tested positive for norovirus. CT abdomen pelvis notable for an obstructing 7mm right UPJ stone with mild right-sided hydronephrosis, additional nonobstructing bilateral nephrolithiasis, innumerable renal cysts, and a thick- walled hypodense partially exophytic 3.6 cm lesion of the right kidney which is indeterminant, and right-sided urothelial thickening and perinephric inflammatory stranding. Urine culture was collected and pending. He was started on IV ciprofloxacin. Admitted to medicine service for continued care management. CT abdomen pelvis 1. Mild right-sided hydronephrosis secondary to an obstructing 7 mm calculus of the ureteropelvic junction. 2. Nonobstructing bilateral nephrolithiasis. 3. Innumerable hepatic and renal cysts. 4. There is a thick walled hypodense partially exophytic 3.6 cm lesion of the right kidney which is indeterminate and should be evaluated with a follow-up one month renal ultrasound. 5. Right-sided urothelial thickening and perinephric inflammatory stranding is likely reactive. Correlate with urinalysis to exclude superimposed infection. 6. Normal appendix. Patient examined at bedside in the ED. Awake, resting bed on arrival. No acute distress. at bedside. Patient reports he had breakfast around 7308AM. Has also had a few sips of water since then. He denies prior history of nephrolithiasis. Denies prior history. Attending note: Patient independently assessed, examined, interviewed, and evaluated. Agree with note as above. Patient's vitals and labs were all reviewed. Pertinent values in the HPI and plan section. Imaging was reviewed interpreted by myself. Agree with read. Vitals were reviewed. Discussed findings extensively with patient and family. Reviewed with nurse practitioner as well as consulting physicians/team. Patient's complicated medical and surgical history was reviewed and summarized above. Patient's surgical, medical, social, and family history were all reviewed with pertinent values as above. Discussed patient's current diagnosis as well as concerns and issues. Reviewed different options moving forward. Discussed potential risks and benefits as well as possible options and concerns. Reviewed potential surgical options and interventions. Discussed potential issues and concerns related to intervention. Risk and benefits were discussed extensively with patient and any available family. Discussed potential risks related to anesthesia. Discussed risks of bleeding infection and injury. Risks and benefits discussed at length for procedure. These include bleeding, infection, injury to surrounding tissues or organs, and risks associated with anesthesia. Patient states understanding and agrees to proceed. Will sign consent and schedule. Patient had developed fevers in the evening. Now 39.3. Discussed extensively different options. Concern for febrile UTI with obstructing stone. Patient's vitals and labs are all reviewed his imaging was reviewed interpreted by myself. Agree with plan. Plan for intervention with urgent stent. Will plan to move forward. Plan for cystoscopy with right stent. Allergies Allergy/AdvReac Type Severity Reaction Status Date / Time No Known Allergies AdvReac Unknown Unverified 02/15/05 17:10 Home Medications Medication Instructions Recorded Confirmed Type losartan 50 mg-hydrochlorothiazide 1 tab PO DAILY 05/19/23 05/19/23 History 12.5 mg tablet Patient History Medical History Essential hypertension Surgical History History of colonoscopy History of vasectomy Family History Father Hypertension Cancer Mother Hypertension Diabetes Social History Smoking Status: Never smoker Second Hand Exposure: No; Do You Dip or Chew Tobacco: No; Hx Alcohol Use: No Hx Substance Use: No Preferred Language: Uzbek 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 Beliefs That Will Affect Care: None Current Living Situation: Spouse Feels Safe at Home: Yes Assistive Devices: Glasses Review of Systems Review of Systems: All systems reviewed & are unremarkable except as noted in HPI & below Physical Exam Constitutional: well developed and well nourished; no acute distress Neck: normal visual inspection Respiratory: normal respiratory effort; no respiratory distress and no labored breathing Gastrointestinal (Abdomen): Inspection/Auscultation: abdomen normal to inspection Musculoskeletal: Head/Neck/Chest: normocephalic Skin: No visible rashes or lesions to exposed skin areas Neurologic: moves all extremities and awake Psychiatric: A+Ox3, euthymic affect Results & Data Vital Signs (Past 12 Hours) Vital Signs Temp Pulse Resp BP Pulse Ox O2 Del Method 05/19/23 12:00 77 21 118/80 95 05/19/23 11:00 75 22 95 05/19/23 10:00 74 22 95 05/19/23 09:51 80 05/19/23 09:48 81 23 95 05/19/23 09:48 Room Air 05/19/23 09:12 37.1 C 95 H 20 125/75 97 Room Air PG Care Time/CCT Total # of Minutes Spent Total Time Spent with Patient: Total time spent is greater than 50% in coordination of care (as documented) at patient's floor/unit and/or counseling patient: Coding Level of Care Code 68796 IN/OBS CONSULT LVL 3,45M Diagnoses Obstruction of right ureteropelvic junction due to stone N20.1 Urinary tract infection without hematuria, site unspecified N39.0 Hematuria presence: without hematuria Urinary tract infection type: site unspecified (2) UTI (urinary tract infection) Hematuria presence: without hematuria Urinary tract infection type: site unspecified Qualified Code(s): N39.0 - Urinary tract infection, site not specified
[2023-05-19] MEDS: SODIUM CHLORIDE 0.9% 1,000 ML IV SCH (14:28)
[2023-05-19] MEDS: cefTRIAXone SODIUM 2,000 MG in DEXTROSE 5 % MINI-B 50 ML IV SCH (15:23)
--- NOTE | 2023-05-19 19:35 | Communication Note ---
Date of Service: May 19, 2023 This patient was seen earlier today by the urology service where he was noted to have a 7 mm right-sided kidney stone and concern for underlying infection. At the time of his initial consultation the patient was noted to be hemodynamically stable and afebrile. The patient has subsequently spiked a fever of 39.4 had approximately 6:[address] Hutchison has been notified and is planning on taking patient to the operating room this evening for cystoscopy and likely ureteral stent placement. I visited with the patient and informed him of the plans. The patient has been n.p.o. Despite his fever his hemodynamically stable with a blood pressure of 118/80 and a pulse of 70. Patient has received antibiotics in form of Cipro in the emergency department but is also been switched to Rocephin which she is currently receiving. Additional recommendations will be forthcoming based on his clinical course as unfolds after his procedure this evening.
[2023-05-19] MEDS: ACETAMINOPHEN 1,000 MG/100 ML VIAL IV PRN (19:48)
--- NOTE | 2023-05-19 19:57 | Anesthesiology Consultation ---
Date of Service May 19, 2023 Assessment & Plan (1) Encounter for pre-operative examination: Chart Review Chart Review: Patient NOT seen in Pre Admission Testing emergent case Consults Requested none History Surgery Operation Date: 05/19/23 20:00 Proposed Procedures p Cystoscopy - Vladimir Hutchison DO Height/Weight Height: 5 ft 8 in Weight: 71.4 kg Allergies Allergy/AdvReac Type Severity Reaction Status Date / Time No Known Allergies AdvReac Unknown Unverified 02/15/05 17:10 Medications Home Medications Medication Instructions Recorded Confirmed Last Taken losartan 50 mg-hydrochlorothiazide 1 tab PO DAILY 05/19/23 05/19/23 05/19/23 12.5 mg tablet Active Medications Generic Name Dose Route Start Last Admin Trade Name Freq PRN Reason Stop Dose Admin Sodium Chloride 1,000 mls @ 100 mls/hr 05/19/23 14:14 05/19/23 19:50 Nss IV 06/18/23 14:13 0 mls/hr .Q10H [facility] Infusion Ceftriaxone Sodium 2,000 mg/ 50 mls @ 100 mls/hr 05/19/23 14:30 05/19/23 15:58 Dextrose IV 05/29/23 14:29 Infused Q24H [facility] Infusion Protocol Acetaminophen 1,000 mg in 100 mls @ 400 mls/hr 05/19/23 19:36 05/19/23 19:48 Ofirmev IV 05/22/23 19:35 400 mls/hr Q8H PRN Administration Pain or Fever Past Medical History Medical History Essential hypertension Past Family History Family History Father Hypertension Cancer Mother Hypertension Diabetes Past Surgical History Surgical History History of colonoscopy History of vasectomy Social History Smoking Status: Never smoker Do You Dip or Chew Tobacco: No Hx Alcohol Use: No Hx Substance Use: No Physical Exam Vital Signs Last Vital Signs Temp 102.7 F H 05/19/23 19:50 Pulse 83 05/19/23 19:50 Resp 18 05/19/23 19:50 BP 128/76 05/19/23 19:50 Pulse Ox 96 05/19/23 19:50 O2 Del Method Room Air 05/19/23 19:50 Testing Laboratory Results 05/19/23 09:41 05/19/23 09:41 PT 12.8 Seconds (9.0-12.0) H 05/19/23 10:18 INR 1.2 (0.9-1.1) H 05/19/23 10:18 APTT 37 Seconds (21-31) H 05/19/23 10:18 Urine Color Dark Yellow 05/19/23 10:12 Urine Appearance Cloudy (Clear) A 05/19/23 10:12 Urine pH 5.5 (4.5-7.5) 05/19/23 10:12 Ur Specific [place] 1.027 (1.000-1.030) 05/19/23 10:12 Urine Protein 2+ (Negative) H 05/19/23 10:12 Urine Glucose (UA) Negative (Negative) 05/19/23 10:12 Urine Ketones Trace (Negative) H 05/19/23 10:12 Urine Nitrite Positive (Negative) A 05/19/23 10:12 Ur Leukocyte Esterase 2+ (Negative) H 05/19/23 10:12 Urine WBC (Auto) >30 /hpf (0-5) H 05/19/23 10:12 Urine RBC (Auto) 5-10 /hpf (0-4) H 05/19/23 10:12 U Hyaline Cast (Auto) 10-30 /lpf (0-5) H 05/19/23 10:12 U Epithel Cells (Auto) 0-5 /lpf (0-5) 05/19/23 10:12 Urine Bacteria (Auto) 2+ (Negative) H 05/19/23 10:12
[2023-05-19] MEDS ORDERED: LIDOCAINE 2% 2 ML VIAL/AMP(20MG/ML) INFIL ONE (20:05)
[2023-05-19] MEDS ORDERED: PROPOFOL IV EMULSION 10 MG/ML 20 ML VIAL IV ONE (20:05)
[2023-05-19] MEDS ORDERED: fentaNYL citrate PF 100 MCG/2 ML VIAL ONE (20:06)
[2023-05-19] MEDS ORDERED: MIDAZOLAM HCL 1 MG/ML 2ML VIAL ONE (20:06)
[2023-05-19] MEDS ORDERED: HYDROmorphone INJ 2 MG/ML SYR/VIAL IV PRN (20:08)
[2023-05-19] MEDS ORDERED: ePHEDrine sulfate 50 MG/ML AMP IV PRN (20:08)
[2023-05-19] MEDS ORDERED: ATROPINE SULFATE 0.1 MG/ML 10ML SYR IV PRN (20:08)
[2023-05-19] MEDS ORDERED: fentaNYL citrate PF 100 MCG/2 ML VIAL IV PRN (20:08)
[2023-05-19] MEDS ORDERED: ONDANSETRON INJ 2 MG/ML 2 ML VIAL IV PRN (20:08)
--- NOTE | 2023-05-19 20:50 | Operative Report ---
[facility] Post Operative Report Pre & Post Diagnosis Febrile Right Ureteral Stone Same Operation Date: 05/19/23 20:00 <No data on this case meets the specified criteria> I identified the patient and participated in the time-out.: Yes Procedure Operation Date: 05/19/23 20:00 Actual Procedures p Cystoscopy with Right Aspiration, Right Retrograde Pyelogram, Right Stent Insertion(Right) - Vladimir Hutchison, Surgeon Vladimir Hutchison, II, DO Transportation Department Supervisor None Estimated Blood Loss 1 Findings Consistent with Post-Op Diagnosis Stent placed in good position. Dark Urine with debris. Specimens None Drains 6 Fr Multilength Anesthesia Type MAC Complications none Disposition Disposition: Recovery Room Indications Patient with obstruction. Risks and benefits discussed at length. Description of Procedure Patient was consented and brought back to the operating room. Patient was placed under anesthesia in the supine position and moved to the dorsal lithotomy position. Patient was prepped and draped in the regular sterile fashion. A time out was completed. A 30degree Cystoscope was placed into the bladder and the entire bladder was examined. The UO's were identified. The UO was cannulized with a catheter and advanced to the renal pelvis. The stone was bypassed and urine was able to be aspirated. The catheter was then positioned at the UPJ and a retrograde pyelogram was completed. A wire was then placed. With the wire in place, a 6 Fr Double J stent was placed. It was confirmed with fluoroscopy. With the stent in place, the bladder was emptied. The scope was removed. The patient was cleaned, aroused from anesthesia, and transferred to the pacu in stable condition having tolerated the procedure well with no complications. I was present and participated in all aspects of the procedure. The patient will be monitored in the PACU until transferred. Plan to monitor with antibiotics over night. Will likely need stent for 1-2 weeks with stone treatment after treatment of infection. I attest to the content of the Intraoperative Record and any orders documented therein. Any exceptions are noted below.
[2023-05-19] MEDS ORDERED: ONDANSETRON INJ 2 MG/ML 2 ML VIAL ONE (20:57)
[2023-05-19] MEDS ORDERED: DEXAMETHASONE SOD INJ 4 MG/ML VIAL ONE (20:57)
--- NOTE | 2023-05-19 21:20 | Anesthesiology Progress Note ---
Date of Service May 19, 2023 Anesthesia Post Procedure Vital Signs Vital Signs: Temp Pulse Pulse Pulse Resp BP BP 05/19/23 21:10 99.0 F 75 16 104/67 05/19/23 21:00 74 19 100/64 05/19/23 20:53 99.1 F 77 20 97/61 L 05/19/23 19:50 102.7 F H 83 18 128/76 05/19/23 18:59 102.9 F H 05/19/23 15:40 70 05/19/23 13:45 97.9 F 68 18 05/19/23 12:00 77 21 118/80 05/19/23 11:00 75 22 05/19/23 10:00 74 22 05/19/23 09:51 80 05/19/23 09:48 81 23 05/19/23 09:48 05/19/23 09:12 98.8 F 95 H 20 125/75 Pulse Ox O2 Del Method 05/19/23 21:10 94 Room Air 05/19/23 21:00 95 Room Air 05/19/23 20:53 98 Room Air 05/19/23 19:50 96 Room Air 05/19/23 18:59 05/19/23 15:40 05/19/23 13:45 96 Room Air 05/19/23 12:00 95 05/19/23 11:00 95 05/19/23 10:00 95 05/19/23 09:51 05/19/23 09:48 95 05/19/23 09:48 Room Air 05/19/23 09:12 97 Room Air Pain Intensity Right Lower Abdomen: Pain Intensity: 4 Transfer of Care Handoff Completed per policy Notes Mental Status: alert / awake / arousable and participated in evaluation Patient Amnestic to Procedure: Yes Nausea / Vomiting: adequately controlled Pain: adequately controlled Airway Patency, RR, SpO2: stable & adequate BP & HR: stable & adequate Hydration State: stable & adequate Anesthetic Complications: no major complications apparent and Pt Satisfied with anesthetic care
[2023-05-19] MEDS ORDERED: Nursing to Pharmacy Communication SCH (23:30)
[2023-05-20] MEDS: POTASSIUM CHLORIDE CRTAB 20 MEQ TABCR PO STA (00:15)
[2023-05-20] MEDS: CEFEPIME 2,000 MG in SYRINGE 0 ML IV SCH (00:19)
--- NOTE | 2023-05-20 07:16 | Fluoroscopy Report ---
FL retrograde includes kub CLINICAL HISTORY: RT SIDE CYSTO STENT COMPARISON STUDY: CT of the abdomen and pelvis May 19, 2023 at 10:40 AM. FLUOROSCOPY TIME: 14 seconds. Ka, r: 2.87 mGy FLUOROSCOPIC IMAGES: 4 FINDINGS: Fluoroscopy was provided during right retrograde pyelogram and right ureteral stent placeme nt. Proximal aspect of the stent is obscured by contrast but likely well-positioned. Distal aspect is within the bladder. IMPRESSION: Fluoroscopy provided during right retrograde pyelogram and right ureteral stent placemen t. ACT 112: Negative or not required by law. Electronically signed by: Jered Rodriguez M.D. 05/20/2023 7:15 AM
[2023-05-20 08:11] LABS: Hematocrit (blood only) 40.7 % (42.0-52.0); Hemoglobin 13.1 g/dl (14.0-18.0); Mean Corpuscular Hemoglobin 28.7 pg (25.0-34.0); Mean Corpuscular Hgb Conc 32.2 g/dL (32.0-36.0); Mean Corpuscular Volume 89.3 fL (80.0-100.0); Mean Platelet Volume 11.2 fL (9.4-12.4); Platelet Count 167 K/uL (130-400); RDW Coefficient of Variation 13.1 % (11.5-14.5); RDW Standard Deviation 42.5 fL (36.4-46.3); Red Blood Count 4.56 M/uL (4.70-6.10); White Blood Count 12.51 K/ul (4.8-10.8)
[2023-05-20 08:49] LABS: INR 1.1 (0.9-1.1); Prothrombin Time 12.4 Seconds (9.0-12.0)
[2023-05-20 09:01] LABS: Basophils # (auto) 0.01 K/uL (0.00-0.20); Basophils % (auto) 0.1 %; Immature Granulocytes # (auto) 0.09 K/uL (0.01-0.20); Immature Granulocytes % (auto) 0.7 %; Lymphocytes % (auto) 3.2 %; Monocytes # (auto) 0.43 K/uL (0.11-0.59); Monocytes % (auto) 3.4 %; Neutrophils # (auto) 11.58 K/uL (1.40-6.50); Neutrophils % (auto) 92.6 %; RBC Morphology Unremarkable
[2023-05-20 09:03] LABS: Albumin Globulin Ratio 1.2 (0.9-2); Albumin Level 3.5 gm/dl (3.4-5.0); BUN Creatinine Ratio 18.4 (10-20); Bilirubin,Total 0.7 mg/dl (0.2-1.0); Calcium 8.3 mg/dl (8.6-10.3); Creatinine Clr Calc Pharmacy 81.2 ml/min; Est GFR (African American) 96.3 ml/min; Est GFR (Non-African American) 83.1 ml/min; Magnesium 2.3 mg/dl (1.7-2.4); Phosphorus 1.9 mg/dl (2.5-4.9); Potassium 4.2 mmol/L (3.5-5.1); Total Protein 6.5 gm/dl (6.0-8.3)
[2023-05-20 09:09] LABS: Estimated Average Glucose 117 mg/dl; Hemoglobin A1C 5.7 % (4.5-5.6)
--- NOTE | 2023-05-20 10:07 | Hospitalist Progress Note ---
Date of Service May 20, 2023 delayed entry date of service noted above Assessment & Plan (1) UTI (urinary tract infection): Plan: Sepsis, POA This is a 52 y/o male with history of hypertension who presents to the ED today with fever and right flank pain for three days. Work-up in the ED shows mild right hydronephrosis with 7 mm obstructing stone at the UPJ. Pt is currently afebrile but reports taking both Tylenol and Advil this morning prior to coming to the ED as his temp was elevated again. Work-up also positive for norovirus but pt reports diarrhea has resolved and stools are back to baseline. - Admit to med telemetry - Consult urology for possible intervention - will keep pt NPO for now - Pain control, anti-emetics - Continue antibiotics pending culture results - will change to Rocephin - IVF hydration with NSS at 100 ml/hr - Follow labs - CBC, BMP in the AM - Contact precautions since positive for norovirus 4/2 s/p Stent placement yesterday Urine culture: gram negative bacilli Blood culture: negative so far continue IV Cefepime IV fluids PRN Pyridium R Renal Cyst - further work up and management as outpatient per Urology Hepatic and Renal Cysts - outpatient management Acute Kidney Injury - resolved (2) Obstruction of right ureteropelvic junction due to stone: Plan: See plan for #1 (3) Essential hypertension: Plan: Chronic, stable Hold losartan-HCTZ for now and monitor BP Plan Pt seen and reviewed with collaborating physician, Dr. Payton. Plan of care discussed and as outlined above. Code Status: Full code DVT Prophylaxis: SCDs Admission and Anticipated Discharge Date Admission Date: May 19, 2023 Subjective ff up for sepsis, UTI, ureteral stone, etc seen resting in bed, sitting comfortable, in good spirits states he feels improved today less R flank pain has mild dysuria urine light pink no fever/chills, nausea/vomiting no other symptoms Review of Systems Review of Systems: all noted and negative except for above Physical Exam Physical Exam: General- oriented x 3, not in distress, speaks in sentences with no effort or accessory muscle use Eyes- anicteric Neck- no JVD Lungs- clear breath sounds bilaterally, no rales/wheezes Heart- normal rate, regular rhythm; no murmurs Abdomen- normal bowel sounds, nondistended, soft, nontender no CVA tenderness Extremities- no pretibial edema, no calf tenderness Neuro- alert, oriented x 3; no gross focal neurologic deficits Skin- warm & dry Results & Data Results & Data Vital Signs (Past 12 Hours) Vital Signs Temp Pulse Pulse Resp BP Pulse Ox O2 Del Method 05/20/23 07:25 36.5 C 60 18 115/76 97 Room Air 05/20/23 05:56 57 L 05/20/23 04:05 36.6 C 60 20 119/78 97 Room Air 05/19/23 23:51 37.3 C 68 20 107/67 95 Room Air 05/19/23 22:24 36.8 C all noted and reviewed including below
--- NOTE | 2023-05-20 12:33 | Urology Progress Note ---
Date of Service May 20, 2023 Assessment & Plan (1) Obstruction of right ureteropelvic junction due to stone: (2) UTI (urinary tract infection): Plan - POD #1 s/p Cystoscopy with Right Aspiration, Right Retrograde Pyelogram, Right Stent Insertion - Feeling better today, tolerating the ureteral stent with minimal bother. - Afebrile and hemodynamically stable. - Labs reviewed - WBC 12.51, Hemoglobin 13.1, Creatinine 1.03. - Urine culture 05/19/23 prelim gram negative bacilli, repeat pending. Blood cultures pending. On Cefepime. - No plan for further intervention. - Continue supportive care and pain management. - Follow cultures and tailor as culture data becomes available. - Recommend d/c when medically stable with course of PO antibiotics. - Recommend Tamsulosin, prn Pyridium and prn pain medication for stent management. - Will arrange follow-up with our service for definitive stone management. - Urology will follow peripherally. Please call with any further questions or concerns. Admission and Anticipated Discharge Date Admission Date: May 19, 2023 Subjective Patient examined at bedside this AM. Awake, resting in bed on arrival. No acute distress. Overall feeling better today. Denies fever, chills, nausea, vomiting. Tolerating the stent with minimal bother. Reports some hematuria and dysuria with voiding. Review of Systems Constitutional: as per Subjective / HPI Genitourinary: + as per Subjective / HPI Physical Exam Constitutional: no acute distress Respiratory: no respiratory distress and no labored breathing Neurologic: moves all extremities and awake Psychiatric: A+Ox3, euthymic affect Results & Data Vital Signs (Past 12 Hours) Vital Signs Temp Pulse Pulse Resp BP Pulse Ox O2 Del Method 05/20/23 11:12 36.7 C 66 18 150/82 H 97 Room Air 05/20/23 07:25 36.5 C 60 18 115/76 97 Room Air 05/20/23 05:56 57 L 05/20/23 04:05 36.6 C 60 20 119/78 97 Room Air PG Care Time/CCT Total # of Minutes Spent Total Time Spent with Patient: Total time spent is greater than 50% in coordination of care (as documented) at patient's floor/unit and/or counseling patient: Coding Level of Care Code 25414 SUB INP/OBS CARE 2/35MIN Diagnoses Obstruction of right ureteropelvic junction due to stone N20.1 Urinary tract infection without hematuria, site unspecified N39.0
[2023-05-20] MEDS: PHENAZOPYRIDINE HCL 100 MG TAB PO PRN (20:48)
[2023-05-21 07:10] LABS: Folate (Folic Acid),Ser orPlas 12.75 ng/ml (>5.38)
[2023-05-21] MEDS: INFLUENZA VIRUS QUADRIVALENT VACCINE (IIV4) 0.5 ML SYR IM ONE (07:19)
[2023-05-21 07:31] LABS: Ferritin 300.1 ng/ml (8-388)
[2023-05-21 09:00] LABS: Calcium 8.5 mg/dl (8.6-10.3)
[2023-05-21 09:06] LABS: BUN Creatinine Ratio 21.4 (10-20); Creatinine Clr Calc Pharmacy 81.2 ml/min; Est GFR (African American) 96.3 ml/min; Est GFR (Non-African American) 83.1 ml/min
[2023-05-21] MEDS: LOSARTAN POTASSIUM 25 MG TAB PO SCH (09:43)
[2023-05-21 09:59] LABS: Phosphorus 1.4 mg/dl (2.5-4.9)
[2023-05-21] MEDS ORDERED: POTASSIUM PHOS 3 MMOL/1 ML INFUSION IV STA (10:07)
--- NOTE | 2023-05-21 10:43 | Discharge Summary ---
Discharge Summary Date of Service May 21, 2023 Notes For Next Care Provider Please obtain BMP and phosphorus level at hospital follow-up. He was hospitalized secondary to sepsis, obstructive right ureteral stent at [facility]. He underwent urologic procedure with stent placement. Urine culture grew pansensitive E. coli. He was discharged on oral ciprofloxacin for additional 10 days. Incidentally he was also noted to have a right renal cyst. He will need appropriate urology follow-up for this. Medication Changes From Visit Ciprofloxacin 500 mg 1 tablet every 12 hours by mouth for 10 days. Next dose is due on 05/21/23 around 9 PM. Florastor 250 mg 1 tablet daily by mouth for 10 days. This is a probiotic to protect your GI health. Tamsulosin 0.4 mg 1 tablet by mouth daily at bedtime. This is for your Urologic stent that is in place. Neutra-Phos 250mg one tablet by mouth four times daily for 5 days. This is for low phosphorus levels. Pyridium 100 mg every 8 hours NEEDED for painful urination. You may utilize over the counter Tylenol as needed if you experience any pain. Admission HPI Per Admitting Provider This is a 52 y/o male with history of hypertension who presents to the ED today with fever and right flank pain for three days. Pt reports that he had some diarrhea on and Friday of last week - took an unknown medication for this which helped and bowel movements are now normal. Friday, he started with fevers with a Tmax of 105F per his report. He has been alternating Tylenol and Advil to help with the fever but reports it hasn't gotten below 100F and his temperature goes back up as soon as these medications wear off. He has pain that initially started in his right flank/back but is now more in his RLQ and flank. The pain seems worse with specific movements but better if he lies still. He currently rates it as a 5 out of 10. He has noted chills and sweats. He denies vomiting, hematuria, or dysuria. He denies prior history of nephrolithiasis. Admission Exam Per Admitting Provider General: awake, alert, NAD HEENT: no scleral icterus, moist oral mucosa Neck: trachea midline Heart: RRR Lungs: CTA bilaterally Abdomen: soft, +BS, +tenderness in right lower flank area Extremities: no pedal edema, distal pulses intact and equal Skin: warm, dry, no decreased turgor, no jaundice Neurologic: moving all extremities, no focal deficits, no confusion or dysarthria Principal Dx & Hospital Course #1 = Principal Diagnosis (1) UTI (urinary tract infection): Sepsis, POA This is a 52 y/o male with history of hypertension who presents to the ED today with fever and right flank pain for three days. Work-up in the ED shows mild right hydronephrosis with 7 mm obstructing stone at the UPJ. Pt is currently afebrile but reports taking both Tylenol and Advil this morning prior to coming to the ED as his temp was elevated again. Work-up also positive for norovirus but pt reports diarrhea has resolved and stools are back to baseline. He was started on empiric IV cefepime. He met criteria for sepsis. He was seen and evaluated by urology and underwent a cystoscopy with right aspiration, right retrograde pyelogram and right stent insertion. Urine culture grew pansensitive E. coli. His antibiotics were de-escalated from IV cefepime to oral Cipro. He will complete additional 10-day course. His blood cultures after 24 hours revealed no growth to date. His intraoperative urine culture and final blood culture is pending at time of discharge. He agrees to follow-up with this. On day of discharge she did have low phosphorus at 1.4. He received IV replacement and is being discharged on oral supplementation for additional 5 days. His hospital course was otherwise unremarkable. Imaging incidentally noted a right renal cyst that will need further workup per urology. On day of discharge he is in good spirits. He is afebrile and hemodynamically stable. He denies any pain, dysuria or hematuria. He is tolerating a regular diet. He will be discharged with close urologic and PCP follow-up. (2) Obstruction of right ureteropelvic junction due to stone: (3) Essential hypertension: Discharge Exam Gen: WD/WN, NAD, A&O x3 HEENT: Normocephalic, atraumatic, conjunctivae moist, sclerae anicteric, mucous membranes moist. Lung: Clear to Auscultation bilaterally, no wheezes/rales/rhonchi Heart: Regular rate, regular rhythm, no murmurs, rubs, or gallops Abdomen: Soft, NT, ND +BS x 4 Extremities: No edema Skin: Warm, no rash, negative turgor. Updated Medication List Medication Instructions Recorded Confirmed Type losartan 50 mg-hydrochlorothiazide 1 tab PO DAILY 05/19/23 05/19/23 History 12.5 mg tablet Saccharomyces boulardii 250 mg 250 mg PO DAILY #10 caps 05/21/23 Rx capsule (Florastor) ciprofloxacin HCl 500 mg tablet 500 mg PO Q12H 10 days #20 tabs 05/21/23 Rx (Cipro) phenazopyridine 100 mg tablet 100 mg PO TID PRN pain with urinat 05/21/23 Rx (Pyridium) 7 days #21 tabs sodium di- and 1 tab PO QID 5 days #20 tabs 05/21/23 Rx monophosphate-potassium phos monobasic 250 mg tablet (Phospha Neutral) tamsulosin 0.4 mg capsule (Flomax) 0.4 mg PO HS #30 caps 05/21/23 Rx Hospital Stay Data Consultations 05/19/23 11:27 Consult Urology Stat 05/19/23 11:28 ED Decision to Admit Stat Procedures Performed Operation Date: 05/19/23 20:00 Actual Procedures p Cystoscopy with Right Aspiration, Right Retrograde Pyelogram, Right Stent Insertion(Right) - Vladimir Hutchison DO Diagnostic Imagining Performed Abdomen/Pelvis CT 05/19/23 09:[address] WITH IV CONTRAST CT DOSE: 741.16 mGy.cm HISTORY: Acute right lower quadrant abdominal pain with fever rlq pain fever ro appy TECHNIQUE: Multiaxial CT images of the abdomen and pelvis were performed following the IV administration of 94 cc of Optiray, A dose lowering technique was utilized adhering to the principles of ALARA. COMPARISON STUDY: None. FINDINGS: Trace pleural effusions. Mild subsegmental dependent bibasilar atelectasis. No free air. Unremarkable spleen, pancreas and adrenal glands. Innumerable mostly subcentimeter cystic foci of the liver suggestive of cysts and/or biliary hamartomas. Additional subcentimeter foci of the liver measuring up to 1.6 cm or incomplete characterized however favored to be benign. There is patency of the hepatic and portal veins. Innumerable cysts of the kidneys with intermediate attenuating hypodensities of the right kidney. There is a 3.6 cm thick-walled cystic exophytic lesion of the mid inferior pole right kidney. 4 mm nonobstructing calculus of the inferior pole right kidney. There are several subcentimeter calcifications of the left kidney. Urothelial thickening of the right renal collecting system and ureter with mild right-sided hydronephrosis secondary to an obstructing 5 x 4 x 7 mm calculus of the right ureteropelvic junction. Decompressed bladder with wall thickening. Mild prostatomegaly. Small fat filled inguinal hernias, left greater than right. Atherosclerosis of the aorta without aneurysm. No lymphadenopathy. No bowel obstruction or bowel wall thickening. Colonic diverticulosis. Normal appendix. Severe L5-S1 intervertebral disc space narrowing. No acute fracture. IMPRESSION: 1. Mild right-sided hydronephrosis secondary to an obstructing 7 mm calculus of the ureteropelvic junction. 2. Nonobstructing bilateral nephrolithiasis. 3. Innumerable hepatic and renal cysts. 4. There is a thick walled hypodense partially exophytic 3.6 cm lesion of the right kidney which is indeterminate and should be evaluated with a follow-up one month renal ultrasound. 5. Right-sided urothelial thickening and perinephric inflammatory stranding is likely reactive. Correlate with urinalysis to exclude superimposed infection. 6. Normal appendix. ACT 112: Negative or not required by law. The above report was generated using voice recognition software. It may contain grammatical, syntax or spelling errors. Electronically signed by: Skinny Hay M.D. 05/19/2023 11:22 AM Retrograde Pyelogram 05/19/23 19:52 FL retrograde includes kub CLINICAL HISTORY: RT SIDE CYSTO STENT COMPARISON STUDY: CT of the abdomen and pelvis May 19, 2023 at 10:40 AM. FLUOROSCOPY TIME: 14 seconds. Ka, r: 2.87 mGy FLUOROSCOPIC IMAGES: 4 FINDINGS: Fluoroscopy was provided during right retrograde pyelogram and right ureteral stent placement. Proximal aspect of the stent is obscured by contrast but likely well-positioned. Distal aspect is within the bladder. IMPRESSION: Fluoroscopy provided during right retrograde pyelogram and right ureteral stent placement. ACT 112: Negative or not required by law. Electronically signed by: Jered Rodriguez M.D. 05/20/2023 7:15 AM Pending Results Patient Have Any Pending Studies at Discharge: Yes (blood culture results) Discharge Instructions Given to Patient (Per Discharging Provider) MEDICATION CHANGES: Ciprofloxacin 500 mg 1 tablet every 12 hours by mouth for 10 days. Next dose is due on 05/21/23 around 9 PM. Florastor 250 mg 1 tablet daily by mouth for 10 days. This is a probiotic to protect your GI health. Tamsulosin 0.4 mg 1 tablet by mouth daily at bedtime. This is for your Urologic stent that is in place. Neutra-Phos 250mg one tablet by mouth four times daily for 5 days. This is for low phosphorus levels. Pyridium 100 mg every 8 hours NEEDED for painful urination. You may utilize over the counter Tylenol as needed if you experience any pain. SUMMARY OF TEST RESULTS: You were admitted to hospital secondary to significant infection in your urine that was the result of a obstructive kidney stone in your right ureter. Urine and blood cultures were obtained. You were treated with IV antibiotics. You were seen and evaluated by urology and underwent a procedure in which a ureteral stent was placed. You will need additional urologic procedure as an outpatient after infection is cleared. You will continue to take additional antibiotics for 10 days. Your phosphorus level was low on day of discharge and therefore this is being replaced. PENDING TEST RESULTS: Final blood culture and urine culture from urologic procedure is pending. RECOMMENDATIONS FOR FOLLOW-UP: Please follow-up with your primary care provider as scheduled. Please follow-up with urology as scheduled. You will need additional procedure after completion of antibiotic. Urology will arrange this. Incidentally you were found to have a right renal cyst. You will need to follow-up with urology for further workup and management of this. Please complete antibiotics in their entirety. Your phosphorus level was low on day of discharge. You received IV replacement. You have been prescribed additional replacement - 4 times daily for 5 days. At follow-up with your family doctor I would recommend they repeat your phosphorus level as well as a basic metabolic panel. You may utilize Tylenol, 500 mg, every 6 hours as needed for pain. You may also utilize Pyridium, 100 mg, every 8 hours as needed for painful urination. OTHER INSTRUCTIONS: Seek medical attention if you have: * temperature above 101 * chest pain or trouble breathing * abdominal pain, nausea, vomiting * diarrhea, dark stools or bloody stools * any unanswered questions or concerns Call 911 if symptoms are severe. Please take good care of yourself. It has been a pleasure taking care of you. Please take care of yourself. If you have any questions regarding your recent hospitalization please contact [facility] and request Amy Guzman @ [phone]. Total Time Total Time Spent Total Time Spent (In Minutes): 45 minutes Supervising Physician Co-Signing Physician Notes delayed entry date of service noted above Attending Addendum: care coordinated with AYSHA Michelle Covarrubias please refer to her notes for full details, I agree with her notes patient seen and examined, records reviewed by myself as well no other symptoms VS noted and reviewed oriented x 3, not in distress, speaks in sentences with no effort nor accessory muscle use normal rate, regular rhythm, no murmurs clear breath sounds bilaterally non distended, soft, nontender no bipedal edema, erythema, warmth no neuro deficits All labs noted and reviewed ASSESSMENT AND PLAN Discharge canceled Patient febrile Continue cefepime IV Informed on-call urologist Monitor closely Rubens Mills MD
[2023-05-21] MEDS: POTASSIUM PHOSPHATE 21 MMOL in SODIUM CHLORIDE 0.9% 500 ML IV ONE (11:07)
[2023-05-21] MEDS: CIPROFLOXACIN 500 MG TAB PO STA (11:07)
[2023-05-21] MEDS: SODIUM CHLORIDE 0.9% 1,000 ML IV SCH (17:46)
[2023-05-21] MEDS: CEFEPIME 2,000 MG in SYRINGE 0 ML IV SCH (18:12)
[2023-05-21] MEDS: LOSARTAN POTASSIUM 25 MG TAB PO ONE (18:30)
[2023-05-22 05:16] LABS: Albumin Globulin Ratio 1.1 (0.9-2); Albumin Level 3.4 gm/dl (3.4-5.0); BUN Creatinine Ratio 16.8 (10-20); Bilirubin,Total 0.8 mg/dl (0.2-1.0); Calcium 8.6 mg/dl (8.6-10.3); Creatinine Clr Calc Pharmacy 82.8 ml/min; Est GFR (African American) 98.7 ml/min; Est GFR (Non-African American) 85.1 ml/min; Magnesium 1.8 mg/dl (1.7-2.4); Phosphorus 2.4 mg/dl (2.5-4.9); Potassium 3.7 mmol/L (3.5-5.1); Total Protein 6.4 gm/dl (6.0-8.3)
[2023-05-22 07:11] LABS: Basophils # (auto) 0.01 K/uL (0.00-0.20); Basophils % (auto) 0.1 %; Eosinophils # (auto) 0.03 K/uL (0.00-0.50); Eosinophils % (auto) 0.3 %; Hematocrit (blood only) 38.3 % (42.0-52.0); Immature Granulocytes # (auto) 0.05 K/uL (0.01-0.20); Immature Granulocytes % (auto) 0.5 %; Lymphocytes # (auto) 0.72 K/uL (1.20-3.40); Lymphocytes % (auto) 7.1 %; Mean Corpuscular Hgb Conc 33.9 g/dL (32.0-36.0); Mean Corpuscular Volume 85.3 fL (80.0-100.0); Mean Platelet Volume 11.3 fL (9.4-12.4); Monocytes # (auto) 0.84 K/uL (0.11-0.59); Monocytes % (auto) 8.3 %; Neutrophils # (auto) 8.53 K/uL (1.40-6.50); Neutrophils % (auto) 83.7 %; Platelet Count 201 K/uL (130-400); RDW Coefficient of Variation 12.8 % (11.5-14.5); RDW Standard Deviation 39.6 fL (36.4-46.3); Red Blood Count 4.49 M/uL (4.70-6.10); White Blood Count 10.18 K/ul (4.8-10.8)
--- NOTE | 2023-05-22 08:04 | Urology Progress Note ---
Date of Service May 22, 2023 Assessment & Plan (1) Obstruction of right ureteropelvic junction due to stone: (2) UTI (urinary tract infection): Plan - POD #3 s/p Cystoscopy with Right Aspiration, Right Retrograde Pyelogram, Right Stent Insertion - Pt was febrile last night and earlier this morning (Tmax 38.4C). - Afebrile and hemodynamically stable at present. - Labs today -no leukocytosis and normal renal function. - Urine culture / grew E. coli - Urine kidney aspirate culture was negative - Blood cultures prelim no growth x 48 hours, repeat pending - Continues on cefepime. ID consulted. - Voiding spontaneously, continue to monitor. - Renal ultrasound reviewed - No hydronephrosis. Right ureteral stent in place. Innumerable bilateral renal cysts. 4cm cystic lesion right kidney favors a complex cyst, renal abscess is considered less likely given lack of internal echoes. - No plan for further intervention. - It is not unexpected to have cyclical fevers with complicated UTI/Pyelo. - If he continues to have persistent fevers, can consider repeat CT abd pelvis. - For now, would recommend continuing with supportive care and antibiotics. - Urology will follow along. Admission and Anticipated Discharge Date Admission Date: May 19, 2023 Subjective Patient examined at bedside this AM. Awake, resting in bed on arrival. No acute distress. Pt was to be discharged yesterday but developed fever last night and again this morning (Tmax 38.4C). He is afebrile at present. Denies any significant pain. Denies chills, nausea, vomiting. Tolerating the stent with minimal bother. Voiding without issue. Denies hematuria or dysuria. Review of Systems Constitutional: as per Subjective / HPI Genitourinary: + as per Subjective / HPI Physical Exam Constitutional: no acute distress Respiratory: no respiratory distress and no labored breathing Neurologic: awake Psychiatric: A+Ox3, euthymic affect Results & Data Vital Signs (Past 12 Hours) Vital Signs Temp Pulse Pulse Resp BP BP Pulse Ox 05/22/23 07:37 36.8 C 54 L 18 124/61 97 05/22/23 07:15 56 L 05/22/23 05:51 37.4 C 05/22/23 05:09 38.4 C H 05/22/23 04:36 66 16 141/82 H 92 05/21/23 22:01 56 L 05/21/23 21:41 36.9 C 52 L 18 143/85 H 96 O2 Del Method 05/22/23 07:37 Room Air 05/22/23 07:15 05/22/23 05:51 05/22/23 05:09 05/22/23 04:36 Room Air 05/21/23 22:01 05/21/23 21:41 Room Air PG Care Time/CCT Total # of Minutes Spent Total Time Spent with Patient: Total time spent is greater than 50% in coordination of care (as documented) at patient's floor/unit and/or counseling patient: Coding Level of Care Code 13362 SUB INP/OBS CARE 2/35MIN Diagnoses Obstruction of right ureteropelvic junction due to stone N20.1 Urinary tract infection without hematuria, site unspecified N39.0
--- NOTE | 2023-05-22 12:12 | Ultrasound Report ---
RENAL ULTRASOUND CLINICAL HISTORY: ff up UPJ stone, stent placement, UTI COMPARISON STUDY: CT of the abdomen and pelvis May 19, 2023. TECHNIQUE: Sonography of the kidneys and the urinary bladder was performed. FINDINGS: The right kidney measures 11.3 x 5.4 x 5.4 cm and the left measures 10.5 x 6.8 x 5.4 cm. Th ere is no hydronephrosis. Right ureteral stent is in place. The distal aspect is within the bladder. The proximal aspect is not well visualized by sonography. No renal calculi are identified. Bilateral renal cysts are noted. A 4 x 2.4 x 2.6 cm cystic lesion within the lower pole of the right kidney con tains several thin septations and a mildly thickened wall. This corresponds to the complex cystic les ion on CT of May 19, 2023. IMPRESSION: 1. No hydronephrosis. Right ureteral stent in place. 2. Innumerable bilateral renal cysts. 4 cm cystic lesion within the lower pole of the right kidney wh ich corresponds to the cystic lesion on CT of May 19, 2023. This contains several septations and thi ckened wall. This favors a mildly complex cyst. A renal abscess is considered less likely given lack of internal echoes. ACT 112: Negative or not required by law. Electronically signed by: Jered Rodriguez M.D. 05/22/2023 12:10 PM
--- NOTE | 2023-05-22 17:07 | Infectious Disease Consult ---
Date of Service May 22, 2023 Telehealth Information I performed this visit using a real-time telehealth connection between my location and the patients location ([facility]). After connecting through interactive tele-video, patient was identified by name and date of and/or wristband check.Patient (or authorized healthcare phlebotomy services representative) was informed that this was a telemedicine visit and it was being conducted confidentially over secure lines. My office door was closed and no one else was present in the room with me.Patient (or authorized healthcare phlebotomy services representative) provided consent to proceed with the visit, expressed an understanding of privacy and security of the telemedicine visit, and gave permission to have a hospital phlebotomy services representative in the room in order to assist with the visit and to conduct portions of the visit, as needed. I informed the patient (or authorized healthcare phlebotomy services representative) that I reviewed their record and presented the opportunity for them to ask any questions regarding the visit today. The patient agreed to participate. Assessment & Plan (1) Obstruction of right ureteropelvic junction due to stone: (2) UTI (urinary tract infection): (3) Hydronephrosis concurrent with and due to calculi of kidney and ureter: (4) E. coli UTI (urinary tract infection): Plan Patient who p/w with fever and right flank pain and was found to have kidney stones and urine culture grew E Coli .Patient is on cefepime and is expected to have his kidney stone removed as an outpatient in 1-2 weeks .Recommend switching to ceftriaxone while inpatient and on discharge can use keflex for 2 weeks hopefully the stone will be removed by then as it may be the nidus for his infection .Thank you for allowing us to participate in the care of this patient ID will sign off History of Present Illness History of Present Illness 52 y/o M PMHx of hypertension who presented to the ED with fever and right flank pain for three days. Work-up in the ED shows mild right hydronephrosis with 7 mm obstructing stone at the UPJ. Pt is currently afebrile but reports taking both Tylenol and Advil prior to coming to the ED as his temp was elevated again. Work-up also positive for norovirus but pt reports diarrhea has resolved and stools are back to baseline.His urine culture has grown pansensistive E Coli and he is on cefepime Allergies Allergy/AdvReac Type Severity Reaction Status Date / Time No Known Allergies AdvReac Unknown Unverified 02/15/05 17:10 Home Medications Medication Instructions Recorded Confirmed Type losartan 50 mg-hydrochlorothiazide 1 tab PO DAILY 05/19/23 05/19/23 History 12.5 mg tablet Saccharomyces boulardii 250 mg 250 mg PO DAILY #10 caps 05/21/23 Rx capsule (Florastor) ciprofloxacin HCl 500 mg tablet 500 mg PO Q12H 10 days #20 tabs 05/21/23 Rx (Cipro) phenazopyridine 100 mg tablet 100 mg PO TID PRN pain with urinat 05/21/23 Rx (Pyridium) 7 days #21 tabs sodium di- and 1 tab PO QID 5 days #20 tabs 05/21/23 Rx monophosphate-potassium phos monobasic 250 mg tablet (Phospha Neutral) tamsulosin 0.4 mg capsule (Flomax) 0.4 mg PO HS #30 caps 05/21/23 Rx Patient History Medical History Essential hypertension Surgical History History of colonoscopy History of vasectomy Family History Father Hypertension Cancer Mother Hypertension Diabetes Social History Smoking Status: Never smoker Second Hand Exposure: No; Do You Dip or Chew Tobacco: No; Hx Alcohol Use: No Hx Substance Use: No Preferred Language: Slovenian Communication Ability: Effective Rivet Catcher Required: No Beliefs That Will Affect Care: None Current Living Situation: Spouse Feels Safe at Home: Yes Assistive Devices: None Review of Systems Patient afebrile no respiratory distress denies dysuria or increased frequency of urination Physical Exam Patient awake alert oriented head normocephalic no respiratory distress responds appropriately to questions Results & Data Vital Signs (Past 12 Hours) Vital Signs Temp Pulse Pulse Resp BP Pulse Ox O2 Del Method 05/22/23 16:14 57 L 05/22/23 15:43 37.2 C 65 18 129/82 97 Room Air 05/22/23 07:37 36.8 C 54 L 18 124/61 97 Room Air 05/22/23 07:15 56 L 05/22/23 05:51 37.4 C 05/22/23 05:09 38.4 C H Laboratory Results WBC [id number] Diagnostic Findings IMPRESSION: 1. Mild right-sided hydronephrosis secondary to an obstructing 7 mm calculus of the ureteropelvic junction. 2. Nonobstructing bilateral nephrolithiasis. 3. Innumerable hepatic and renal cysts. 4. There is a thick walled hypodense partially exophytic 3.6 cm lesion of the right kidney which is indeterminate and should be evaluated with a follow-up one month renal ultrasound. 5. Right-sided urothelial thickening and perinephric inflammatory stranding is likely reactive. Correlate with urinalysis to exclude superimposed infection. 6. Normal appendix. Medications Administered Cefepime
[2023-05-22] MEDS ORDERED: ACETAMINOPHEN 325 MG TAB PO PRN (17:49)
[2023-05-22] MEDS ORDERED: ondansetron HCL 6 MG in DEXTROSE 5% 50 ML IV PRN (17:56)
--- NOTE | 2023-05-22 17:56 | Hospitalist Progress Note ---
Date of Service May 22, 2023 Assessment & Plan (1) UTI (urinary tract infection): Plan: Sepsis, POA This is a 52 y/o male with history of hypertension who presents to the ED today with fever and right flank pain for three days. Work-up in the ED shows mild right hydronephrosis with 7 mm obstructing stone at the UPJ. Pt is currently afebrile but reports taking both Tylenol and Advil this morning prior to coming to the ED as his temp was elevated again. Work-up also positive for norovirus but pt reports diarrhea has resolved and stools are back to baseline. He was started on empiric IV cefepime. He met criteria for sepsis. He was seen and evaluated by urology and underwent a cystoscopy with right aspiration, right retrograde pyelogram and right stent insertion. Urine culture grew pansensitive E. coli. His antibiotics were de-escalated from IV cefepime to oral Cipro. He will complete additional 10-day course. His blood cultures after 24 hours revealed no growth to date. His intraoperative urine culture and final blood culture is pending at time of discharge. He agrees to follow-up with this. On day of discharge she did have low phosphorus at 1.4. He received IV replacement and is being discharged on oral supplementation for additional 5 days. His hospital course was otherwise unremarkable. Imaging incidentally noted a right renal cyst that will need further workup per urology. On day of discharge he is in good spirits. He is afebrile and hemodynamically stable. He denies any pain, dysuria or hematuria. He is tolerating a regular diet. He will be discharged with close urologic and PCP follow-up. (2) Obstruction of right ureteropelvic junction due to stone: (3) Essential hypertension: Plan: (1) UTI (urinary tract infection): Plan: Sepsis, POA This is a 52 y/o male with history of hypertension who presents to the ED today with fever and right flank pain for three days. Work-up in the ED shows mild right hydronephrosis with 7 mm obstructing stone at the UPJ. Pt is currently afebrile but reports taking both Tylenol and Advil this morning prior to coming to the ED as his temp was elevated again. Work-up also positive for norovirus but pt reports diarrhea has resolved and stools are back to baseline. - [facility] - Consult urology for possible intervention - will keep pt NPO for now - Pain control, anti-emetics - Continue antibiotics pending culture results - will change to Rocephin - IVF hydration with NSS at 100 ml/hr - Follow labs - CBC, BMP in the AM - Contact precautions since positive for norovirus 4/ s/p Stent placement yesterday Urine culture: gram negative bacilli Blood culture: negative so far continue IV Cefepime IV fluids PRN Pyridium / Febrile overnight Urine culture: Pansensitive E. coli Initial blood cultures: Negative Repeat blood cultures: Pending Renal ultrasound: Unrevealing Discussed with urology service ID consult Transition from IV cefepime to IV ceftriaxone Plan for transitioning to cephalexin upon discharge, to continue until definitive stone management by urology service has been performed Monitor closely R Renal Cyst - further work up and management as outpatient per Urology Hepatic and Renal Cysts - outpatient management Acute Kidney Injury - resolved (2) Obstruction of right ureteropelvic junction due to stone: Plan: See plan for #1 (3) Essential hypertension: Plan: Chronic, stable Hold losartan-HCTZ for now and monitor BP Admission and Anticipated Discharge Date Admission Date: May 19, 2023 Subjective Follow-up for right UPJ stone, status post stent placement, UTI, etc. Patient febrile again this morning Seen resting in bed, comfortable, not in distress States he feels okay overall Denies abdominal/flank/back pain No problems with urination No hematuria No other new symptoms Review of Systems Review of Systems: all noted and negative except for above Physical Exam Physical Exam: General- oriented x 3, not in distress, speaks in sentences with no effort or accessory muscle use Eyes- anicteric Neck- no JVD Lungs- clear breath sounds bilaterally, no rales/wheezes Heart- normal rate, regular rhythm; no murmurs Abdomen- normal bowel sounds, nondistended, soft, nontender No CVA tenderness Extremities- no pretibial edema, no calf tenderness Neuro- alert, oriented x 3; no gross focal neurologic deficits Skin- warm & dry Results & Data Results & Data Vital Signs (Past 12 Hours) Vital Signs Temp Pulse Pulse Resp BP Pulse Ox O2 Del Method 05/22/23 16:14 57 L 05/22/23 15:43 37.2 C 65 18 129/82 97 Room Air 05/22/23 07:37 36.8 C 54 L 18 124/61 97 Room Air 05/22/23 07:15 56 L all noted and reviewed including below
[2023-05-22] MEDS: cefTRIAXone SODIUM 2,000 MG in DEXTROSE 5 % MINI-B 50 ML IV SCH (18:32)
[2023-05-22] MEDS: ADVANCED PROBIOTIC 625 MG CAPSULE PO SCH (20:16)
[2023-05-23 05:36] LABS: Basophils # (auto) 0.02 K/uL (0.00-0.20); Basophils % (auto) 0.2 %; Eosinophils # (auto) 0.07 K/uL (0.00-0.50); Eosinophils % (auto) 0.6 %; Hematocrit (blood only) 37.5 % (42.0-52.0); Hemoglobin 12.8 g/dl (14.0-18.0); Immature Granulocytes # (auto) 0.07 K/uL (0.01-0.20); Immature Granulocytes % (auto) 0.6 %; Lymphocytes # (auto) 1.36 K/uL (1.20-3.40); Mean Corpuscular Hemoglobin 29.2 pg (25.0-34.0); Mean Corpuscular Hgb Conc 34.1 g/dL (32.0-36.0); Mean Corpuscular Volume 85.4 fL (80.0-100.0); Mean Platelet Volume 10.9 fL (9.4-12.4); Monocytes % (auto) 9.7 %; Neutrophils # (auto) 8.71 K/uL (1.40-6.50); Neutrophils % (auto) 76.9 %; Platelet Count 226 K/uL (130-400); RDW Coefficient of Variation 12.6 % (11.5-14.5); RDW Standard Deviation 39.2 fL (36.4-46.3); Red Blood Count 4.39 M/uL (4.70-6.10); White Blood Count 11.33 K/ul (4.8-10.8)
[2023-05-23 06:03] LABS: Albumin Globulin Ratio 1.1 (0.9-2); Albumin Level 3.4 gm/dl (3.4-5.0); BUN Creatinine Ratio 16.3 (10-20); Bilirubin,Total 0.7 mg/dl (0.2-1.0); Calcium 8.8 mg/dl (8.6-10.3); Creatinine Clr Calc Pharmacy 97.2 ml/min; Est GFR (African American) 115.6 ml/min; Est GFR (Non-African American) 99.7 ml/min; Globulin 3.2 gm/dl (2.5-4.0); Phosphorus 2.6 mg/dl (2.5-4.9); Potassium 3.8 mmol/L (3.5-5.1); Total Protein 6.6 gm/dl (6.0-8.3)
[2023-05-23 09:53] LABS: Bilirubin Direct 0.2 mg/dl (0-0.2)
--- NOTE | 2023-05-23 13:56 | Urology Progress Note ---
Date of Service May 23, 2023 Assessment & Plan (1) Obstruction of right ureteropelvic junction due to stone: (2) UTI (urinary tract infection): Plan - POD #4 s/p Cystoscopy with Right Aspiration, Right Retrograde Pyelogram, Right Stent Insertion - Tolerating the stent with minimal bother. - Afebrile and hemodynamically stable at present (Tmax 37.8C early this morning). - Labs today - WBC 11.33, Creatinine 0.86. - Urine culture 05/18 grew E. coli - Urine kidney aspirate culture was negative - Blood cultures prelim no growth x 48 hours, repeat prelim no growth x 24 hours - Changed from Cefepime to Ceftriaxone per ID recommendations. - Voiding spontaneously, continue to monitor. - Renal ultrasound 05/21 - No hydronephrosis. Right ureteral stent in place. Innumerable bilateral renal cysts. 4cm cystic lesion right kidney favors a complex cyst, renal abscess is considered less likely given lack of internal echoes. - No plan for further intervention. - Would recommend transitioning to PO antibiotics on discharge per ID recommendations. - Pt to have gallbladder US today for eval of RUQ pain. - Continue supportive care, antibiotics, and pain management as needed. - Will arrange outpatient follow-up with our service to discuss definitive stone treatment. - Urology will follow peripherally. Please call with any further questions, concerns, or changes in patient status. Plan reviewed with Dr. Lacy, on-call urologist. Admission and Anticipated Discharge Date Admission Date: May 19, 2023 Subjective Patient examined at bedside this AM. Awake, sitting in bedside chair on arrival. No acute distress. Tmax 37.8 early this morning. Reports RUQ pain. States this pain is different than the stent discomfort. Has been tolerating the stent with minimal bother. Denies chills, nausea, vomiting. Voiding without issue. Denies hematuria or dysuria. Review of Systems Constitutional: as per Subjective / HPI Genitourinary: + as per Subjective / HPI Physical Exam Constitutional: well developed and well nourished; no acute distress Neck: normal visual inspection Respiratory: normal respiratory effort; no respiratory distress and no labored breathing Gastrointestinal (Abdomen): Inspection/Auscultation: abdomen normal to inspection Musculoskeletal: Head/Neck/Chest: normocephalic Neurologic: moves all extremities and awake Psychiatric: A+Ox3, euthymic affect Results & Data Vital Signs (Past 12 Hours) Vital Signs Temp Pulse Pulse Resp BP Pulse Ox O2 Del Method 05/23/23 11:35 36.9 C 64 18 121/79 99 Room Air 05/23/23 07:39 36.8 C 65 18 138/83 95 Room Air 05/23/23 07:25 66 05/23/23 04:58 37.8 C H 68 20 152/88 H 94 Room Air PG Care Time/CCT Total # of Minutes Spent Total Time Spent with Patient: Total time spent is greater than 50% in coordination of care (as documented) at patient's floor/unit and/or counseling patient: Coding Level of Care Code 70798 SUB INP/OBS CARE 2/35MIN Diagnoses Obstruction of right ureteropelvic junction due to stone N20.1 Urinary tract infection without hematuria, site unspecified N39.0
--- NOTE | 2023-05-23 14:28 | Ultrasound Report ---
US gallbladder CLINICAL HISTORY: Right upper quadrant pain. COMPARISON STUDY: CT of the abdomen and pelvis May 19, 2023. FINDINGS: Morphology is normal. Several echogenic foci within the liver measure up to 1.5 cm. There i s no biliary ductal dilatation. No gallstones are identified. There is no gallbladder wall thickening . A few tiny gallbladder polyps are incidentally noted. Pancreatic body is normal. Head and tail obsc ured. There is no right hydronephrosis. Multiple right renal cysts are again noted. IMPRESSION: 1. No gallstones. No biliary ductal dilatation. 2. Several echogenic lesions within the liver which measure up to 1.5 cm. 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 A right quadrant ultrasound in 6 months to ensure stability is recommended. ACT 112: Negative or not required by law. Electronically signed by: Jered Rodriguez M.D. 05/23/2023 2:27 PM
--- NOTE | 2023-05-23 17:45 | Hospitalist Progress Note ---
Date of Service May 23, 2023 delayed entry date of service noted above Assessment & Plan (1) UTI (urinary tract infection): (2) Obstruction of right ureteropelvic junction due to stone: (3) Essential hypertension: Plan: UTI (urinary tract infection): Plan: Sepsis, POA Right UPJ stone Status post ureteral stent placement This is a 52 y/o male with history of hypertension who presents to the ED today with fever and right flank pain for three days. Work-up in the ED shows mild right hydronephrosis with 7 mm obstructing stone at the UPJ. Pt is currently afebrile but reports taking both Tylenol and Advil this morning prior to coming to the ED as his temp was elevated again. Work-up also positive for norovirus but pt reports diarrhea has resolved and stools are back to baseline. / s/p Stent placement Urine culture: E. coli Blood culture: Negative Given IV Cefepime Patient developed fevers 2 days after stent placement Renal ultrasound: Unrevealing Discussed with urology service-no plans for additional procedures at this point ID consulted-transition from cefepime to IV ceftriaxone Transition to cephalexin upon discharge, to continue until definitive stone management by urology service has been performed 05/22 Cleared for discharge by urology service Will be seen next week for discussion regarding definitive stone management and subsequent stent removal Discharged on cephalexin 500 mg p.o. twice daily x 2 weeks, continue until definitive stone management has been performed As needed Pyridium, Tylenol R Renal Lesion CT abdomen and pelvis: Innumerable hepatic and renal cysts. There is a thick walled hypodense partially exophytic 3.6 cm lesion of the right kidney which is indeterminate and should be evaluated with a follow-up one month renal ultrasound. - further work up and management as outpatient per Urology Hepatic and Renal Cysts -Further evaluation and management as an outpatient Acute Kidney Injury - resolved Right upper quadrant pain Gallbladder ultrasound: 1. No gallstones. No biliary ductal dilatation. 2. Several echogenic lesions within the liver which measure up to 1.5 cm. These likely reflect hemangiomas. A right quadrant ultrasound in 6 months to ensure stability is recommended. Likely from recent stent placement, nephrolithiasis Monitor closely Essential hypertension Plan: Continue losartan-HCTZ plan of care discussed with patient and his in detail and at length all questions answered they are understanding, agreeable, comfortable with the plan of care Admission and Anticipated Discharge Date Admission Date: May 19, 2023 Subjective Follow-up for right UPJ stone, UTI, etc. Resting in bed, comfortable, not in distress Reporting right upper quadrant pain mostly with coughing and palpation No nausea or vomiting, fevers or chills No problems with voiding No chest pain, shortness of breath, cough No other new symptoms Reevaluated in the afternoon Right upper quadrant pain seems to be somewhat improving No other new changes States he is ready for discharge Review of Systems Review of Systems: all noted and negative except for above Physical Exam Physical Exam: General- oriented x 3, not in distress, speaks in sentences with no effort or accessory muscle use Eyes- anicteric Neck- no JVD Lungs- clear breath sounds bilaterally, no rales/wheezes Heart- normal rate, regular rhythm; no murmurs Abdomen- normal bowel sounds, nondistended, soft, mild tenderness RUQ Extremities- no pretibial edema, no calf tenderness Neuro- alert, oriented x 3; no gross focal neurologic deficits Skin- warm & dry Results & Data Results & Data Vital Signs (Past 12 Hours) Vital Signs Temp Pulse Pulse Resp BP Pulse Ox O2 Del Method 05/23/23 15:21 37.0 C 69 18 113/77 97 Room Air 05/23/23 15:16 58 L 05/23/23 11:35 36.9 C 64 18 121/79 99 Room Air 05/23/23 07:39 36.8 C 65 18 138/83 95 Room Air 05/23/23 07:25 66 all noted and reviewed including below
--- NOTE | 2023-05-24 17:04 | Discharge Summary ---
Discharge Summary Date of Service May 24, 2023 delayed entry date of service noted above Notes For Next Care Provider Medication Changes From Visit Cephalexin 300mg 1 tablet twice a day for 2 weeks. (Further advice on duration as per Urologist) Florastor 250 mg 1 tablet daily by mouth for 21 days. This is a probiotic to protect your GI health. Pyridium 100 mg every 8 hours NEEDED for painful urination. You may utilize over the counter Tylenol as needed if you experience any pain. Admission HPI Per Admitting Provider This is a 52 y/o male with history of hypertension who presents to the ED today with fever and right flank pain for three days. Pt reports that he had some diarrhea on and Friday of last week - took an unknown medication for this which helped and bowel movements are now normal. Friday, he started with fevers with a Tmax of 105F per his report. He has been alternating Tylenol and Advil to help with the fever but reports it hasn't gotten below 100F and his temperature goes back up as soon as these medications wear off. He has pain that initially started in his right flank/back but is now more in his RLQ and flank. The pain seems worse with specific movements but better if he lies still. He currently rates it as a 5 out of 10. He has noted chills and sweats. He denies vomiting, hematuria, or dysuria. He denies prior history of nephrolithiasis. Principal Dx & Hospital Course #1 = Principal Diagnosis (1) UTI (urinary tract infection): (2) Obstruction of right ureteropelvic junction due to stone: (3) Essential hypertension: UTI (urinary tract infection): Plan: Sepsis, POA Right UPJ stone Status post ureteral stent placement This is a 52 y/o male with history of hypertension who presents to the ED today with fever and right flank pain for three days. Work-up in the ED shows mild right hydronephrosis with 7 mm obstructing stone at the UPJ. Pt is currently afebrile but reports taking both Tylenol and Advil this morning prior to coming to the ED as his temp was elevated again. Work-up also positive for norovirus but pt reports diarrhea has resolved and stools are back to baseline. /2 s/p Stent placement Urine culture: E. coli Blood culture: Negative Given IV Cefepime Patient developed fevers 2 days after stent placement Renal ultrasound: Unrevealing Discussed with urology service-no plans for additional procedures at this point ID consulted-transition from cefepime to IV ceftriaxone Transition to cephalexin upon discharge, to continue until definitive stone management by urology service has been performed 4/5 Cleared for discharge by urology service Will be seen next week for discussion regarding definitive stone management and subsequent stent removal Discharged on cephalexin 500 mg p.o. twice daily x 2 weeks, continue until defi nitive stone management has been performed As needed Pyridium, Tylenol R Renal Lesion CT abdomen and pelvis: Innumerable hepatic and renal cysts. There is a thick walled hypodense partially exophytic 3.6 cm lesion of the right kidney which is indeterminate and should be evaluated with a follow-up one month renal ultrasound. - further work up and management as outpatient per Urology Hepatic and Renal Cysts Several echogenic lesions within the liver which measure up to 1.5 cm. These likely reflect hemangiomas. A right quadrant ultrasound in 6 months to ensure stability is recommended. Please refer to full report in the Ordered Studies section -Further evaluation and management as an outpatient Acute Kidney Injury - resolved Right upper quadrant pain Gallbladder ultrasound: 1. No gallstones. No biliary ductal dilatation. 2. Several echogenic lesions within the liver which measure up to 1.5 cm. These likely reflect hemangiomas. A right quadrant ultrasound in 6 months to ensure stability is recommended. Likely from recent stent placement, nephrolithiasis Monitor closely Essential hypertension Atherosclerosis of the aorta without aneurysm seen on CT abd/pelvis Continue losartan-HCTZ consider ASA plan of care discussed with patient and his in detail and at length all questions answered they are understanding, agreeable, comfortable with the plan of care Discharge Exam General- oriented x 3, not in distress, speaks in sentences with no effort or accessory muscle use Eyes- anicteric Neck- no JVD Lungs- clear breath sounds bilaterally, no rales/wheezes Heart- normal rate, regular rhythm; no murmurs Abdomen- normal bowel sounds, nondistended, soft, mild tenderness RUQ Extremities- no pretibial edema, no calf tenderness Neuro- alert, oriented x 3; no gross focal neurologic deficits Skin- warm & dry Updated Medication List Medication Instructions Recorded Confirmed Type losartan 50 mg-hydrochlorothiazide 1 tab PO DAILY 05/19/23 05/19/23 History 12.5 mg tablet Saccharomyces boulardii 250 mg 250 mg PO DAILY #10 caps 05/21/23 Rx capsule (Florastor) phenazopyridine 100 mg tablet 100 mg PO TID PRN pain with urinat 05/21/23 Rx (Pyridium) 7 days #21 tabs cephalexin 500 mg capsule 500 mg PO BID 14 days #28 caps 05/23/23 Rx Hospital Stay Data Consultations 05/19/23 11:27 Consult Urology Stat 05/19/23 11:28 ED Decision to Admit Stat 05/21/23 17:41 Consult Infectious Diseases Routine Procedures Performed Operation Date: 05/19/23 20:00 Actual Procedures p Cystoscopy with Right Aspiration, Right Retrograde Pyelogram, Right Stent Insertion(Right) - Vladimir Hutchison, Diagnostic Imagining Performed Laboratory Results WBC 11.33 K/ul (4.8-10.8) H 05/23/23 04:24 RBC 4.39 M/uL (4.70-6.10) L 05/23/23 04:24 Hgb 12.8 g/dl (14.0-18.0) L 05/23/23 04:24 Hct 37.5 % (42.0-52.0) L 05/23/23 04:24 MCV 85.4 fL (80.0-100.0) 05/23/23 04:24 MCH 29.2 pg (25.0-34.0) 05/23/23 04:24 MCHC 34.1 g/dL (32.0-36.0) 05/23/23 04:24 RDW Std Deviation 39.2 fL (36.4-46.3) 05/23/23 04:24 RDW Coeff of Liam 12.6 % (11.5-14.5) 05/23/23 04:24 Plt Count 226 K/uL (130-400) 05/23/23 04:24 MPV 10.9 fL (9.4-12.4) 05/23/23 04:24 Immature Gran % (Auto) 0.6 % 05/23/23 04:24 Neut % (Auto) 76.9 % 05/23/23 04:24 Lymph % (Auto) 12.0 % 05/23/23 04:24 Faulk % (Auto) 9.7 % 05/23/23 04:24 Eos % (Auto) 0.6 % 05/23/23 04:24 Baso % (Auto) 0.2 % 05/23/23 04:24 Neut # (Auto) 8.71 K/uL (1.40-6.50) H 05/23/23 04:24 Lymph # (Auto) 1.36 K/uL (1.20-3.40) 05/23/23 04:24 Faulk # (Auto) 1.10 K/uL (0.11-0.59) H 05/23/23 04:24 Eos # (Auto) 0.07 K/uL (0.00-0.50) 05/23/23 04:24 Baso # (Auto) 0.02 K/uL (0.00-0.20) 05/23/23 04:24 Immature Gran # (Auto) 0.07 K/uL (0.01-0.20) 05/23/23 04:24 RBC Morphology Unremarkable 05/20/23 07:44 PT 12.4 Seconds (9.0-12.0) H 05/20/23 07:44 INR 1.1 (0.9-1.1) 05/20/23 07:44 APTT 37 Seconds (21-31) H 05/19/23 10:18 PTT Ratio 1.3 05/19/23 10:18 Sodium 134 mmol/L (136-145) L 05/23/23 04:24 Potassium 3.8 mmol/L (3.5-5.1) 05/23/23 04:24 Chloride 102 mmol/L (98-107) 05/23/23 04:24 Carbon Dioxide 23 mmol/L (21-32) 05/23/23 04:24 Anion Gap 9 (3-11) 05/23/23 04:24 BUN 14 mg/dl (6-23) 05/23/23 04:24 Creatinine 0.86 mg/dl (0.6-1.4) 05/23/23 04:24 Est Cr Clr Drug Dosing 97.2 ml/min 05/23/23 04:24 Est GFR ( Amer) 115.6 ml/min 05/23/23 04:24 Est GFR (Non-Af Amer) 99.7 ml/min 05/23/23 04:24 BUN/Creatinine Ratio 16.3 (10-20) 05/23/23 04:24 Glucose 97 mg/dl (70-99(Fasting)) 05/23/23 04:24 Estimat Average Glucose 117 mg/dl 05/20/23 07:44 Hemoglobin A1c 5.7 % (4.5-5.6) H 05/20/23 07:44 Lactate 1.1 mmol/L (0.4-2.0) 05/20/23 00:20 Calcium 8.8 mg/dl (8.6-10.3) 05/23/23 04:24 Phosphorus 2.6 mg/dl (2.5-4.9) 05/23/23 04:24 Magnesium 2.0 mg/dl (1.7-2.4) 05/23/23 04:24 Iron 79 mcg/dl (35-175) 05/21/23 05:39 TIBC 207 mcg/dl (250-450) L 05/21/23 05:39 Unsaturated IBC 128 mcg/dl (155-355) L 05/21/23 05:39 Transferrin % Sat 38 % (20-50) 05/21/23 05:39 Ferritin 300.1 ng/ml (8-388) 05/21/23 05:39 Total Bilirubin 0.7 mg/dl (0.2-1.0) 05/23/23 04:24 Direct Bilirubin 0.2 mg/dl (0-0.2) 05/23/23 04:24 AST 20 U/L (13-39) 05/23/23 04:24 ALT 32 U/L (7-52) 05/23/23 04:24 Alkaline Phosphatase 77 U/L (34-104) 05/23/23 04:24 Total Protein 6.6 gm/dl (6.0-8.3) 05/23/23 04:24 Albumin 3.4 gm/dl (3.4-5.0) 05/23/23 04:24 Globulin 3.2 gm/dl (2.5-4.0) 05/23/23 04:24 Albumin/Globulin Ratio 1.1 (0.9-2) 05/23/23 04:24 Lipase 83 U/L (11-82) H 05/23/23 04:24 Vitamin B12 239 pg/ml (180-914) 05/21/23 05:39 Folate 12.75 ng/ml (>5.38) 05/21/23 05:39 Urine Color Dark Yellow 05/19/23 10:12 Urine Appearance Cloudy (Clear) A 05/19/23 10:12 Urine pH 5.5 (4.5-7.5) 05/19/23 10:12 Ur Specific [place] 1.027 (1.000-1.030) 05/19/23 10:12 Urine Protein 2+ (Negative) H 05/19/23 10:12 Urine Glucose (UA) Negative (Negative) 05/19/23 10:12 Urine Ketones Trace (Negative) H 05/19/23 10:12 Urine Blood 2+ (Negative) H 05/19/23 10:12 Urine Nitrite Positive (Negative) A 05/19/23 10:12 Urine Bilirubin Negative (Negative) 05/19/23 10:12 Urine Urobilinogen Negative (Negative) 05/19/23 10:12 Ur Leukocyte Esterase 2+ (Negative) H 05/19/23 10:12 Urine WBC (Auto) >30 /hpf (0-5) H 05/19/23 10:12 Urine RBC (Auto) 5-10 /hpf (0-4) H 05/19/23 10:12 U Hyaline Cast (Auto) 10-30 /lpf (0-5) H 05/19/23 10:12 U Epithel Cells (Auto) 0-5 /lpf (0-5) 05/19/23 10:12 Urine Bacteria (Auto) 2+ (Negative) H 05/19/23 10:12 Stl C. cayetanensis PCR Not Detected (NotDetected) 05/19/23 10:00 Stool Rotavirus A PCR Not Detected (NotDetected) 05/19/23 10:00 Stl Adenov F 40/41 PCR Not Detected (NotDetected) 05/19/23 10:00 Stool Astrovirus (PCR) Not Detected (NotDetected) 05/19/23 10:00 Stool Campylobacter PCR Not Detected (NotDetected) 05/19/23 10:00 Stool Cryptosporidium PCR Not Detected (NotDetected) 05/19/23 10:00 Stl E.coli Shiga Tox PCR Not Detected (NotDetected) 05/19/23 10:00 Stl Enterotoxigenic E PCR Not Detected (NotDetected) 05/19/23 10:00 Stool EPEC (PCR) Not Detected (NotDetected) 05/19/23 10:00 Stool EAEC (PCR) Not Detected (NotDetected) 05/19/23 10:00 Stl E. histolytica PCR Not Detected (NotDetected) 05/19/23 10:00 Stool Giardia Lamblia PCR Not Detected (NotDetected) 05/19/23 10:00 Stool Salmonella PCR Not Detected (NotDetected) 05/19/23 10:00 Stool Sapovirus (PCR) Not Detected (NotDetected) 05/19/23 10:00 Stl P. shigelloides PCR Not Detected (NotDetected) 05/19/23 10:00 Stl Shigella/EIEC PCR Not Detected (NotDetected) 05/19/23 10:00 St Y.enterocolitica PCR Not Detected (NotDetected) 05/19/23 10:00 Stool Vibrio (PCR) Not Detected (NotDetected) 05/19/23 10:00 Stl Vibrio cholerae PCR Not Detected (NotDetected) 05/19/23 10:00 Stl Norovirus GI/GII PCR DETECTED (NotDetected) A* 05/19/23 10:00 Adenovirus (PCR) Not Detected (NotDetected) 05/19/23 10:12 B. pertussis DNA (PCR) Not Detected (NotDetected) 05/19/23 10:12 B.parapertussis DNA PCR Not Detected (NotDetected) 05/19/23 10:12 C. pneumoniae DNA (PCR) Not Detected (NotDetected) 05/19/23 10:12 Coronavirus OC43 (PCR) Not Detected (NotDetected) 05/19/23 10:12 Coronavirus HKU1 (PCR) Not Detected (NotDetected) 05/19/23 10:12 Coronavirus 229E (PCR) Not Detected (NotDetected) 05/19/23 10:12 SARS-CoV-2 (PCR) Not Detected (NotDetected) 05/19/23 10:12 Coronavirus NL63 (PCR) Not Detected (NotDetected) 05/19/23 10:12 Human Metapneumovir PCR Not Detected (NotDetected) 05/19/23 10:12 Influenza Type A (PCR) Not Detected (NotDetected) 05/19/23 10:12 Influenza Type B (PCR) Not Detected (NotDetected) 05/19/23 10:12 M. pneumoniae (PCR) Not Detected (NotDetected) 05/19/23 10:12 Parainfluenza 1 (PCR) Not Detected (NotDetected) 05/19/23 10:12 Parainfluenza 2 (PCR) Not Detected (NotDetected) 05/19/23 10:12 Parainfluenza 3 (PCR) Not Detected (NotDetected) 05/19/23 10:12 Parainfluenza 4 (PCR) Not Detected (NotDetected) 05/19/23 10:12 RSV (PCR) Not Detected (NotDetected) 05/19/23 10:12 Entero/Rhino (PCR) Not Detected (NotDetected) 05/19/23 10:12 Impressions Abdomen/Pelvis CT 05/19/23 09:[address] WITH IV CONTRAST CT DOSE: 741.16 mGy.cm HISTORY: Acute right lower quadrant abdominal pain with fever rlq pain fever ro appy TECHNIQUE: Multiaxial CT images of the abdomen and pelvis were performed following the IV administration of 94 cc of Optiray, A dose lowering technique was utilized adhering to the principles of ALARA. COMPARISON STUDY: None. FINDINGS: Trace pleural effusions. Mild subsegmental dependent bibasilar atelectasis. No free air. Unremarkable spleen, pancreas and adrenal glands. Innumerable mostly subcentimeter cystic foci of the liver suggestive of cysts and/or biliary hamartomas. Additional subcentimeter foci of the liver measuring up to 1.6 cm or incomplete characterized however favored to be benign. There is patency of the hepatic and portal veins. Innumerable cysts of the kidneys with intermediate attenuating hypodensities of the right kidney. There is a 3.6 cm thick-walled cystic exophytic lesion of the mid inferior pole right kidney. 4 mm nonobstructing calculus of the inferior pole right kidney. There are several subcentimeter calcifications of the left kidney. Urothelial thickening of the right renal collecting system and ureter with mild right-sided hydronephrosis secondary to an obstructing 5 x 4 x 7 mm calculus of the right ureteropelvic junction. Decompressed bladder with wall thickening. Mild prostatomegaly. Small fat filled inguinal hernias, left greater than right. Atherosclerosis of the aorta without aneurysm. No lymphadenopathy. No bowel obstruction or bowel wall thickening. Colonic diverticulosis. Normal appendix. Severe L5-S1 intervertebral disc space narrowing. No acute fracture. IMPRESSION: 1. Mild right-sided hydronephrosis secondary to an obstructing 7 mm calculus of the ureteropelvic junction. 2. Nonobstructing bilateral nephrolithiasis. 3. Innumerable hepatic and renal cysts. 4. There is a thick walled hypodense partially exophytic 3.6 cm lesion of the right kidney which is indeterminate and should be evaluated with a follow-up one month renal ultrasound. 5. Right-sided urothelial thickening and perinephric inflammatory stranding is likely reactive. Correlate with urinalysis to exclude superimposed infection. 6. Normal appendix. ACT 112: Negative or not required by law. The above report was generated using voice recognition software. It may contain grammatical, syntax or spelling errors. Electronically signed by: Skinny Hay M.D. 05/19/2023 11:22 AM Retrograde Pyelogram 05/19/23 19:52 FL retrograde includes kub CLINICAL HISTORY: RT SIDE CYSTO STENT COMPARISON STUDY: CT of the abdomen and pelvis May 19, 2023 at 10:40 AM. FLUOROSCOPY TIME: 14 seconds. Ka, r: 2.87 mGy FLUOROSCOPIC IMAGES: 4 FINDINGS: Fluoroscopy was provided during right retrograde pyelogram and right ureteral stent placement. Proximal aspect of the stent is obscured by contrast but likely well-positioned. Distal aspect is within the bladder. IMPRESSION: Fluoroscopy provided during right retrograde pyelogram and right ureteral stent placement. ACT 112: Negative or not required by law. Electronically signed by: Jered Rodriguez M.D. 05/20/2023 7:15 AM Renal Ultrasound 05/22/23 08:39 RENAL ULTRASOUND CLINICAL HISTORY: ff up UPJ stone, stent placement, UTI COMPARISON STUDY: CT of the abdomen and pelvis May 19, 2023. TECHNIQUE: Sonography of the kidneys and the urinary bladder was performed. FINDINGS: The right kidney measures 11.3 x 5.4 x 5.4 cm and the left measures 10.5 x 6.8 x 5.4 cm. There is no hydronephrosis. Right ureteral stent is in place. The distal aspect is within the bladder. The proximal aspect is not well visualized by sonography. No renal calculi are identified. Bilateral renal cysts are noted. A 4 x 2.4 x 2.6 cm cystic lesion within the lower pole of the right kidney contains several thin septations and a mildly thickened wall. This corresponds to the complex cystic lesion on CT of May 19, 2023. IMPRESSION: 1. No hydronephrosis. Right ureteral stent in place. 2. Innumerable bilateral renal cysts. 4 cm cystic lesion within the lower pole of the right kidney which corresponds to the cystic lesion on CT of May 19, 2023. This contains several septations and thickened wall. This favors a mildly complex cyst. A renal abscess is considered less likely given lack of internal echoes. ACT 112: Negative or not required by law. Electronically signed by: Jered Rodriguez M.D. 05/22/2023 12:10 PM Gallbladder Ultrasound 05/23/23 09:56 US gallbladder CLINICAL HISTORY: Right upper quadrant pain. COMPARISON STUDY: CT of the abdomen and pelvis May 19, 2023. FINDINGS: Morphology is normal. Several echogenic foci within the liver measure up to 1.5 cm. There is no biliary ductal dilatation. No gallstones are identified. There is no gallbladder wall thickening. A few tiny gallbladder polyps are incidentally noted. Pancreatic body is normal. Head and tail obscured. There is no right hydronephrosis. Multiple right renal cysts are again noted. IMPRESSION: 1. No gallstones. No biliary ductal dilatation. 2. Several echogenic lesions within the liver which measure up to 1.5 cm. These likely reflect hemangiomas. A right quadrant ultrasound in 6 months to ensure stability is recommended. ACT 112: Negative or not required by law. Electronically signed by: Jered Rodriguez M.D. 05/23/2023 2:27 PM 05/19/23 09:49 CT abd pelvis IV con only Stat 05/19/23 19:52 FL retrograde includes kub Routine 05/22/23 08:39 US renal/blad retro comp Urgent 05/23/23 09:56 US gallbladder Stat Pending Results Patient Have Any Pending Studies at Discharge: Yes (blood culture results) Discharge Instructions Given to Patient (Per Discharging Provider) MEDICATION CHANGES: Cephalexin 300mg 1 tablet twice a day for 2 weeks. (Further advice on duration as per Urologist) Florastor 250 mg 1 tablet daily by mouth for 21 days. This is a probiotic to protect your GI health. Pyridium 100 mg every 8 hours NEEDED for painful urination. You may utilize over the counter Tylenol as needed if you experience any pain. SUMMARY OF TEST RESULTS: You were admitted to hospital secondary to significant infection in your urine that was the result of a obstructive kidney stone in your right ureter. Urine and blood cultures were obtained. You were treated with IV antibiotics. You were seen and evaluated by urology and underwent a procedure in which a ureteral stent was placed. You will need additional urologic procedure as an outpatient after infection is cleared. PENDING TEST RESULTS: Repeat blood culture result is pending. RECOMMENDATIONS FOR FOLLOW-UP: Please follow-up with your primary care provider as scheduled. Please follow-up with urology as scheduled. Incidentally you were found to have a right renal cyst. You will need to follow-up with urology for further workup and management of this. At follow-up with your family doctor I would recommend they repeat your phosphorus level as well as a basic metabolic panel. You may utilize Tylenol, 500 mg, every 6 hours as needed for pain. You may also utilize Pyridium, 100 mg, every 8 hours as needed for painful urination. OTHER INSTRUCTIONS: Seek medical attention if you have: * temperature above 101 * chest pain or trouble breathing * abdominal pain, nausea, vomiting * diarrhea, dark stools or bloody stools * any unanswered questions or concerns Call 911 if symptoms are severe. Please take good care of yourself. It has been a pleasure taking care of you. Please take care of yourself. If you have any questions regarding your recent hospitalization please contact [facility] and request Amy Guzman @ [phone]. Total Time Total Time Spent Total Time Spent (In Minutes): >30 minutes
== END 2023-05-23 18:11 | disposition home or self-care (01) | DRG 854 ==
LOC: ED 09:09 → 2W 12:21 → SUATTDRO 12:21 → 2W 12:49